=== PATIENT | male | born 1935 | race Caucasian/White ===

== ENCOUNTER 2022-03-13 22:05 | Inpatient (IN) ==
[2022-03-13 23:03] LABS: Basophils # (auto) 0.08 K/uL (0-0.2); Basophils % (auto) 0.7 %; Eosinophils # (auto) 0.19 K/uL (0-0.50); Eosinophils % (auto) 1.6 %; Hematocrit (blood only) 41.8 % (40.1-51.0); Hemoglobin 14.2 g/dl (14.0-18.0); Immature Granulocytes # (auto) 0.03 K/uL (0.00-0.02); Immature Granulocytes % (auto) 0.3 %; Lymphocytes # (auto) 1.92 K/uL (1.2-3.4); Lymphocytes % (auto) 16.2 %; Mean Corpuscular Hemoglobin 30.5 pg (25.0-34.0); Mean Corpuscular Volume 89.9 fL (80.0-100.0); Mean Platelet Volume 12.2 fL (9.4-12.4); Monocytes # (auto) 1.22 K/uL (0.24-0.82); Monocytes % (auto) 10.3 %; Neutrophils # (auto) 8.43 K/uL (1.4-6.5); Neutrophils % (auto) 70.9 %; Platelet Count 204 K/uL (130-400); RDW Coefficient of Variation 13.4 % (11.5-14.5); RDW Standard Deviation 43.8 fL (36.4-46.3); Red Blood Count 4.65 M/uL (4.63-6.08); White Blood Count 11.87 K/ul (4.8-10.8)
[2022-03-13 23:06] LABS: Appearance Urine Clear (Clear); Bacteria Urine Automated Negative (Negative); Bilirubin Urine Negative (Negative); Blood Urine Negative (Negative); Color Urine Dark Yellow; Glucose Urine UA Negative (Negative); Ketones Urine Negative (Negative); Leukocyte Esterase Urine Trace (Negative); Nitrite Urine Negative (Negative); Protein Urine Trace (Negative); RBC Urine Automated 0-4 /hpf (0-4); Specific Gravity Urine 1.018 (1.000-1.030); Urobilinogen Urine Negative (Negative)
[2022-03-13] MEDS ORDERED: cefTRIAXone SODIUM 2,000 MG/70 ML BAG IV STA (23:08)
--- NOTE | 2022-03-13 23:15 | Emergency Department Note ---
Impression & Plan AMS (altered mental status), Hypoxia, Right lower lobe pneumonia, Flu-like symptoms ED Provider Note INFORMANT: EMS, daughter, and patient ED PROVIDER(S): Shon Linder MD CHIEF COMPLAINT: Altered mental status/hypoxia PLAN: Disposition: Admitted Condition: Good Outpatient prescription management: none Referral: None MEDICAL DECISION MAKING: Patient presented because of cold symptoms, hypoxia, and confusion. He has a history of dementia. The patient was doing better with supplemental nasal cannula oxygen. Chest x-ray was concerning for right lower lobe infiltrate. The patient does have a leukocytosis chemistry panel did reveal hypokalemia. Patient was treated with IV Rocephin and doxycycline. He was also given IV potassium. COVID and flu testing were negative. Bio fire testing pending. Further management in the hospital will be necessary. I gave my usual and cu stomary discussion regarding this issue with his daughter. She was in agreement. She noted supportive care, fluids, antibiotics were okay. She noted that the patient is a DNR and no ventilatory support. Consultation was made with Dr. Yon Dunn of the [facility] service. Patient was evaluated in the ER for further management. Triage Nursing notes reviewed and agree them. Vital Signs: reviewed and remarkable for hypoxia prehospital. Differential diagnosis: Infection, hypoglycemia, electrolyte abnormalities, overdose, toxicologic, cardiac sources, intracerebral event, neurologic, trauma, as well as other pathologies. Diagnostics interpreted by me: EC Lead ECG performed and revealed Normal sinus rhythm at 78, normal [place], QRS normal. Nonspecific inferolateral ST changes. No PACs or PVCs Cardiac Monitoring: none Imaging studies: Chest x-ray concern for right lower lobe infiltrate. HPI: The patient is a 86year old male who presents to the Emergency Room with family because of hypoxia. The patient has had cold symptoms over the last 2 days and his O2 saturations today had decreased. Daughter is present helps with the history. He has had cold symptoms for 2 days. The patient's son did have a mild cold earlier this week. He had increased confusion today. Patient has severe dementia and schizophrenia. History is limited secondary to his pre- existing disease and acute illness. The patient did deny any headache, chest pain, or abdominal pain. The patient has been given no medication for relieving factors. ROS: See above HPI for pertinent positives & negatives. Limited secondary to dementia and acute illness. PAST MEDICAL HISTORY:See Below , pneumonia PAST SURGICAL HISTORY:See Below, FAMILY HISTORY:See Below SOCIAL HISTORY:See Below, lives with family HOME MEDICATIONS:See Below ALLERGIES:See Below VITALS:See Below PHYSICAL EXAMINATION: GENERAL: Awake, alert, mildly ill-appearing, in no distress HENT: Normocephalic, atraumatic. Oropharynx unremarkable. EYES: Normal conjunctiva. Sclera non-icteric. NECK: Inspection normal. Non-tender. Supple. No nuchal rigidity. FROM. No masses. RESPIRATORY: Scattered rhonchi. No wheezes. Increased respiratory effort. CARDIAC: Normal rate. Normal rhythm. No murmurs. No rubs. Extremities warm and well perfused. Pulses equal. No JVD. GI: Soft, non-distended. No tenderness to palpation. No rebound or guarding. No masses. RECTAL: Deferred. MUSCULOSKELETAL: Atraumatic. Chest examination reveals no tenderness. The back is symmetrical on inspection without obvious abnormality. There is no CVA tenderness to palpation. No joint edema. LOWER EXTREMITIES: Calves are equal size bilaterally and non-tender. No edema. No discoloration. NEURO: Demented sensorium. Moving arms and legs. Not following commands well. Very hard of hearing. SKIN: No rash or jaundice noted. Shon Linder MD Past Med/Surg History Medical History (Updated 03/13/22 @ 23:15 by Shon Linder MD) Anxiety Arthritis BPH (benign prostatic hyperplasia) CAD (coronary artery disease) Colon cancer COPD (chronic obstructive pulmonary disease) Dementia Depression Hypertension Pneumonia Tobacco abuse Surgical History History of cardiac cath History of colon resection History of open heart surgery S/P CABG x 2 Social History Smoking Status: Unknown if ever smoked Cigarettes Per Day: 20; Second Hand Exposure: Yes; Preferred Language: [place] Communication Ability: Effective Visual Impairment: Partially Limited Hearing Ability: Hard of Hearing [place] [employer] [facility] Technician Required: No Beliefs That Will Affect Care: None marital status: / Current Living Situation: Family Current Living Situation Comment: Son lives w/patient in trailer home Feels Safe at Home: Yes Assistive Devices: Walker Allergies Allergies Allergy/AdvReac Type Severity Reaction Status Date / Time morphine AdvReac Agitated Unverified 06/27/21 19:13 Home Meds Home Medications Medication Instructions Recorded Confirmed amlodipine 5 mg tablet 5 mg PO QAM 02/24/18 06/27/21 clopidogrel 75 mg tablet (Plavix) 75 mg PO QAM 02/24/18 06/27/21 cyanocobalamin (vitamin B-12) 1,000 mcg PO QAM 02/24/18 06/27/21 1,000 mcg tablet (Vitamin B-12) aspirin 81 mg tablet,delayed 81 mg PO QAM 06/27/21 06/27/21 release donepezil 10 mg tablet 10 mg PO QAM 06/27/21 06/27/21 lisinopril 10 mg tablet 10 mg PO QAM 06/27/21 06/27/21 mirtazapine 15 mg tablet 7.5 mg PO HS 06/27/21 06/27/21 quetiapine 50 mg tablet 50 mg PO HS 06/27/21 06/27/21 venlafaxine 75 mg capsule,extended 75 mg PO QAM 06/27/21 06/27/21 release 24 hr Previous Rx's Medication Instructions Recorded cefdinir 300 mg capsule 300 mg PO BID #7 caps 07/01/21 ipratropium 0.5 mg-albuterol 3 mg 3 ml NEB Q4H PRN shortness of 07/01/21 (2.5 mg base)/3 mL nebulization breath or wheezing #90 mL soln prednisone 10 mg tablet 10 mg PO DAILY #26 tabs 07/01/21 Results & Data (ED) Vital Signs Vital Signs - 24 hr 03/13/22 22:21 03/13/22 22:21 03/13/22 22:21 Pulse Rate 76 68 Pulse Rate [Apical] Respiratory Rate 20 Respiratory Effort / Characteristics Respiratory Depth Blood Pressure 148/66 H Blood Pressure [Left Arm] Blood Pressure Mean 93 Blood Pressure Mean [Left Arm] Blood Pressure Position Sitting Pulse Oximetry 90 90 95 Oxygen Delivery Method Room Air Room Air Nasal Cannula Oxygen Flow Rate 0 2 Sepsis Recent Fever Within 48 Hours No Sepsis New/Unexplained Change in Mental Status N/A Sepsis Action Taken by Nursing No Action Required Oxygen Flow Rate - Titration 2 Pulse Oximetry Post Tiitration 95 03/13/22 23:51 Pulse Rate Pulse Rate [Apical] 59 L Respiratory Rate 16 Respiratory Effort / Characteristics Non-Labored Spontaneous Respiratory Depth Normal Blood Pressure Blood Pressure [Left Arm] 120/62 Blood Pressure Mean Blood Pressure Mean [Left Arm] 81 Blood Pressure Position Pulse Oximetry 93 Oxygen Delivery Method Room Air Oxygen Flow Rate Sepsis Recent Fever Within 48 Hours Sepsis New/Unexplained Change in Mental Status Sepsis Action Taken by Nursing Oxygen Flow Rate - Titration Pulse Oximetry Post Tiitration Laboratory Data Result diagrams: 03/13/22 22:30 03/13/22 22:30 Lab Results 03/13/22 03/13/22 03/13/22 Range/Units 22:25 22:25 22:30 WBC 11.87 H (4.8-10.8) K/ul RBC 4.65 (4.63-6.08) M/uL Hgb 14.2 (14.0-18.0) g/dl Hct 41.8 (40.1-51.0) % MCV 89.9 (80.0-100.0) fL MCH 30.5 (25.0-34.0) pg MCHC 34.0 (32.0-36.0) g/dL RDW Std Deviation 43.8 (36.4-46.3) fL RDW Coeff of Bennie 13.4 (11.5-14.5) % Plt Count 204 (130-400) K/uL MPV 12.2 (9.4-12.4) fL Immature Gran % (Auto) 0.3 % Neut % (Auto) 70.9 % Lymph % (Auto) 16.2 % [place] % (Auto) 10.3 % Eos % (Auto) 1.6 % Baso % (Auto) 0.7 % Neut # (Auto) 8.43 H (1.4-6.5) K/uL Lymph # (Auto) 1.92 (1.2-3.4) K/uL [place] # (Auto) 1.22 H (0.24-0.82) K/uL Eos # (Auto) 0.19 (0-0.50) K/uL Baso # (Auto) 0.08 (0-0.2) K/uL Immature Gran # (Auto) 0.03 H (0.00-0.02) K/uL Sodium (136-145) mmol/L Potassium (3.5-5.1) mmol/L Chloride (98-107) mmol/L Carbon Dioxide (21-32) mmol/L Anion Gap (3-11) BUN (6-23) mg/dl Creatinine (0.6-1.4) mg/dl Est Cr Clr Drug Dosing Est GFR ( Amer) ml/min Est GFR (Non-Af Amer) ml/min BUN/Creatinine Ratio (10-20) Glucose (70-99(Fasting)) mg/dl Lactate (0.4-2.0) mmol/L Calcium (8.5-10.1) mg/dl Total Bilirubin (0.2-1.0) mg/dl AST (13-39) U/L ALT (7-52) U/L Alkaline Phosphatase (34-104) U/L Troponin I High Sens (0-20) pg/ml Total Protein (6.0-8.3) gm/dl Albumin (3.4-5.0) gm/dl Globulin (2.5-4.0) gm/dl Albumin/Globulin Ratio (0.9-2) Lipase (11-82) U/L Urine Color Dark Yellow Urine Appearance Clear (Clear) Urine pH 5.0 (4.5-7.5) Ur Specific [place] 1.018 (1.000-1.030) Urine Protein Trace H (Negative) Urine Glucose (UA) Negative (Negative) Urine Ketones Negative (Negative) Urine Blood Negative (Negative) Urine Nitrite Negative (Negative) Urine Bilirubin Negative (Negative) Urine Urobilinogen Negative (Negative) Ur Leukocyte Esterase Trace H (Negative) Urine WBC (Auto) 1-5 (0-5) /hpf Urine RBC (Auto) 0-4 (0-4) /hpf U Hyaline Cast (Auto) 1-5 (0-5) /lpf U Epithel Cells (Auto) 10-20 H (0-5) /lpf Urine Bacteria (Auto) Negative (Negative) SARS-CoV-2 (PCR) NEGATIVE (Negative) Influenza Type A (PCR) Negative (Neg) Influenza Type B (PCR) Negative (Neg) RSV (RT-PCR) Negative (Neg) 03/13/22 03/13/22 Range/Units 22:30 22:43 WBC (4.8-10.8) K/ul RBC (4.63-6.08) M/uL Hgb (14.0-18.0) g/dl Hct (40.1-51.0) % MCV (80.0-100.0) fL MCH (25.0-34.0) pg MCHC (32.0-36.0) g/dL RDW Std Deviation (36.4-46.3) fL RDW Coeff of Bennie (11.5-14.5) % Plt Count (130-400) K/uL MPV (9.4-12.4) fL Immature Gran % (Auto) % Neut % (Auto) % Lymph % (Auto) % [place] % (Auto) % Eos % (Auto) % Baso % (Auto) % Neut # (Auto) (1.4-6.5) K/uL Lymph # (Auto) (1.2-3.4) K/uL [place] # (Auto) (0.24-0.82) K/uL Eos # (Auto) (0-0.50) K/uL Baso # (Auto) (0-0.2) K/uL Immature Gran # (Auto) (0.00-0.02) K/uL Sodium 138 (136-145) mmol/L Potassium 3.1 L (3.5-5.1) mmol/L Chloride 103 (98-107) mmol/L Carbon Dioxide 28 (21-32) mmol/L Anion Gap 7 (3-11) BUN 15 (6-23) mg/dl Creatinine 1.10 (0.6-1.4) mg/dl Est Cr Clr Drug Dosing Not Reportable Est GFR ( Amer) 69.6 ml/min Est GFR (Non-Af Amer) 60.0 ml/min BUN/Creatinine Ratio 13.6 (10-20) Glucose 102 H (70-99(Fasting)) mg/dl Lactate 1.5 (0.4-2.0) mmol/L Calcium 8.4 L (8.5-10.1) mg/dl Total Bilirubin 1.4 H (0.2-1.0) mg/dl AST 12 L (13-39) U/L ALT 11 (7-52) U/L Alkaline Phosphatase 65 (34-104) U/L Troponin I High Sens 10.3 (0-20) pg/ml Total Protein 6.4 (6.0-8.3) gm/dl Albumin 3.7 (3.4-5.0) gm/dl Globulin 2.7 (2.5-4.0) gm/dl Albumin/Globulin Ratio 1.4 (0.9-2) Lipase 28 (11-82) U/L Urine Color Urine Appearance (Clear) Urine pH (4.5-7.5) Ur Specific [place] (1.000-1.030) Urine Protein (Negative) Urine Glucose (UA) (Negative) Urine Ketones (Negative) Urine Blood (Negative) Urine Nitrite (Negative) Urine Bilirubin (Negative) Urine Urobilinogen (Negative) Ur Leukocyte Esterase (Negative) Urine WBC (Auto) (0-5) /hpf Urine RBC (Auto) (0-4) /hpf U Hyaline Cast (Auto) (0-5) /lpf U Epithel Cells (Auto) (0-5) /lpf Urine Bacteria (Auto) (Negative) SARS-CoV-2 (PCR) (Negative) Influenza Type A (PCR) (Neg) Influenza Type B (PCR) (Neg) RSV (RT-PCR) (Neg) Administered Medications Discontinued Medications Ceftriaxone Sodium (Rocephin) 2,000 mg in 70 mls @ 140 mls/hr IV NOW STA Stop: 03/13/22 23:37 Last Admin: 03/13/22 23:32 Dose: 140 mls/hr Documented By: AN Discharge Plan Visit Data Chief Complaint: Altered Mental Status Stated Complaint: ALTERED MENTAL STSTUS/RESPIRATORY/WEAK ED Provider: Shon Linder Discharge Problem: AMS (altered mental status), Hypoxia, Right lower lobe pneumonia, Flu-like symptoms Forms Stand Alone Forms: My [facility] Prescriptions Prescriptions: No Action cyanocobalamin (vitamin B-12) [Vitamin B-12] 1,000 mcg Tablet 1,000 mcg PO QAM clopidogrel [Plavix] 75 mg Tablet 75 mg PO QAM amlodipine 5 mg Tablet 5 mg PO QAM venlafaxine 75 mg capsule,extended release 24hr 75 mg PO QAM donepezil 10 mg tablet 10 mg PO QAM aspirin 81 mg Tablet,Delayed Release (Dr/Ec) 81 mg PO QAM lisinopril 10 mg tablet 10 mg PO QAM mirtazapine 15 mg tablet 7.5 mg PO HS quetiapine 50 mg tablet 50 mg PO HS prednisone 10 mg tablet 10 mg PO DAILY Qty: 26 0RF Rx Instructions: 4 tabs po daily x 2 days, 3 tabs po daily x 3 days, 2 tabs po daily x 3 days, 1 tab po daily x 3 days then stop cefdinir 300 mg capsule 300 mg PO BID Qty: 7 0RF Rx Instructions: next dose due on 07/01/21 before bed ipratropium-albuterol 0.5 mg-3 mg(2.5 mg base)/3 mL Solution For Nebulization 3 ml NEB Q4H PRN (Reason: shortness of breath or wheezing) Qty: 90 0RF Referrals Referrals: Teodoro Bojorquez [Primary Care Provider] -
[2022-03-13 23:26] LABS: Alanine Aminotransferase 11 U/L (7-52); Albumin Globulin Ratio 1.4 (0.9-2); Albumin Level 3.7 gm/dl (3.4-5.0); Alkaline Phosphatase 65 U/L (34-104); Anion Gap 7 (3-11); Aspartate Aminotransferase 12 U/L (13-39); BUN Creatinine Ratio 13.6 (10-20); Bilirubin,Total 1.4 mg/dl (0.2-1.0); Blood Urea Nitrogen 15 mg/dl (6-23); Calcium 8.4 mg/dl (8.5-10.1); Carbon Dioxide 28 mmol/L (21-32); Chloride 103 mmol/L (98-107); Est GFR (African American) 69.6 ml/min; Globulin 2.7 gm/dl (2.5-4.0); Glucose 102 mg/dl (70-99(Fasting)); Lipase 28 U/L (11-82); Potassium 3.1 mmol/L (3.5-5.1); Sodium 138 mmol/L (136-145); Total Protein 6.4 gm/dl (6.0-8.3)
[2022-03-13 23:28] LABS: Troponin I High Sensitivity 10.3 pg/ml (0-20)
[2022-03-13 23:46] LABS: Influenza A virus by PCR Negative (Neg); Influenza B virus by PCR Negative (Neg); RSV by PCR Negative (Neg); SARS CoV2 RNA(COVID-19) Ceph NEGATIVE (Negative)
[2022-03-13] MEDS ORDERED: DOXYCYCLINE HYCLATE 100 MG in DEXTROSE 5% 100 ML IV STA (23:48)
[2022-03-13] MEDS ORDERED: POTASSIUM CHLORIDE / WTR 10 MEQ/100 ML PLCT IV ONE (23:50)
--- NOTE | 2022-03-14 00:18 | History & Physical Report ---
Date of Service March 14, 2022 Assessment & Plan (1) Bacterial pneumonia: Plan: Right greater than left lower lobe bacterial pneumonia/enterovirus/rhinovirus/COPD exacerbation- Continue ceftriaxone 2 g IV daily and doxycycline 100 mg IV every 12 hours begun in the ED Duonebs every 4 hours while awake and every 2 hours when necessary. Methylprednisolone 40 mg IV every 8 hours (2) AMS (altered mental status): Plan: Acute encephalopathy on top of underlying dementia secondary to pulmonary process (3) Rhinovirus infection: (4) Right lower lobe pneumonia: (5) COPD (chronic obstructive pulmonary disease): (6) Dementia: Plan: Dementia/depression/anxiety- Continue donepezil, mirtazapine, quetiapine and venlafaxine (7) Depression: (8) Coronary artery disease: Plan: CAD/hypertension-continue lisinopril, amlodipine with hold parameters, and aspirin (9) Hypertension: (10) Depression: History of Present Illness Chief Complaint: The patient presents to the emergency department with worsening confusion, hypoxia, flulike symptoms with history of dementia. The patient is unable to contribute to HPI or review of systems due to underlying dementia and schizophrenia Primary Care Provider: Teodoro Bojorquez The patient is an 86-year-old male with a past medical history including COPD, dementia, schizophrenia in remission, depression, hyperlipidemia, hypertension, CAD, encephalopathy, status post CABG, colon cancer and depression. He is brought to the emergency department due to symptoms as above. Work-up in the emergency department included a chest x-ray showing right greater than left lower lobe infiltrates, hypoxia with pulse ox on room air in the 80s, and potassium of 3.1. The patient was given ceftriaxone 2 g IV x1, doxycycline 100 mg IV x1 and potassium chloride 10 mill equivalent K rider x1 by the ED. Patient's laboratory studies also did ultimately show rhinovirus and enterovirus positivity Allergies Allergy/AdvReac Type Severity Reaction Status Date / Time morphine AdvReac Agitated Unverified 06/27/21 19:13 Home Medications Medication Instructions Recorded Confirmed Type amlodipine 5 mg tablet 5 mg PO QAM 02/24/18 03/14/22 History clopidogrel 75 mg tablet (Plavix) 75 mg PO QAM 02/24/18 03/14/22 History cyanocobalamin (vitamin B-12) 1,000 mcg PO QAM 02/24/18 03/14/22 History 1,000 mcg tablet (Vitamin B-12) aspirin 81 mg tablet,delayed 81 mg PO QAM 06/27/21 03/14/22 History release donepezil 10 mg tablet 10 mg PO QAM 06/27/21 03/14/22 History lisinopril 10 mg tablet 10 mg PO QAM 06/27/21 03/14/22 History mirtazapine 15 mg tablet 7.5 mg PO HS 06/27/21 03/14/22 History quetiapine 50 mg tablet 50 mg PO BID 06/27/21 03/14/22 History venlafaxine 75 mg capsule,extended 75 mg PO QAM 06/27/21 03/14/22 History release 24 hr ipratropium 0.5 mg-albuterol 3 mg 3 ml NEB Q4H PRN shortness of 07/01/21 03/14/22 Rx (2.5 mg base)/3 mL nebulization breath or wheezing #90 mL soln Past Med/Surg History Medical History (Updated 03/14/22 @ 02:30 by Yon Dunn MD) Anxiety Arthritis BPH (benign prostatic hyperplasia) CAD (coronary artery disease) Colon cancer COPD (chronic obstructive pulmonary disease) Dementia Depression Hypertension Pneumonia Tobacco abuse Surgical History History of cardiac cath History of colon resection History of open heart surgery S/P CABG x 2 Social History Smoking Status: Unknown if ever smoked Cigarettes Per Day: 20; Second Hand Exposure: Yes; Preferred Language: Mohawk Communication Ability: Effective Visual Impairment: Partially Limited Hearing Ability: Hard of Hearing 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 HEENT--PERRL, EOMI, mucous membranes and oropharynx dry. Neck--supple. No JVD. No bruits. Thyroid normal, trachea midline, no adenopathy. Heart--normal S1 and S2. No murmurs, rubs or gallops. Lungs-few coarse breath sounds bilaterally. No respiratory distress, no accessory muscle use. Abdomen--normal bowel sounds and soft. Nontender. Nondistended Extremities--no cyanosis or clubbing. No edema. Dermatologic--normal skin turgor, normal color, no abnormal lymph nodes, no rash. Neurologic--cranial nerves II through XII grossly intact. Rheumatologic--normal range of motion. Psychiatric--cooperative noncommunicative Results & Data Results & Data ([facility]) Vital Signs (Past 12 Hours) Vital Signs Pulse Pulse Resp BP BP Pulse Ox O2 Del Method 03/13/22 23:51 59 L 16 120/62 93 Room Air 03/13/22 22:21 68 95 Nasal Cannula 03/13/22 22:21 90 Room Air 03/13/22 22:21 76 20 148/66 H 90 Room Air O2 Flow Rate 03/13/22 23:51 03/13/22 22:21 2 03/13/22 22:21 0 03/13/22 22:21 Laboratory Results Laboratory Results WBC 11.87 K/ul (4.8-10.8) H 03/13/22 22:30 RBC 4.65 M/uL (4.63-6.08) 03/13/22 22:30 Hgb 14.2 g/dl (14.0-18.0) 03/13/22 22:30 Hct 41.8 % (40.1-51.0) 03/13/22 22:30 MCV 89.9 fL (80.0-100.0) 03/13/22 22:30 MCH 30.5 pg (25.0-34.0) 03/13/22 22:30 MCHC 34.0 g/dL (32.0-36.0) 03/13/22 22:30 RDW Std Deviation 43.8 fL (36.4-46.3) 03/13/22 22:30 RDW Coeff of Bennie 13.4 % (11.5-14.5) 03/13/22 22:30 Plt Count 204 K/uL (130-400) 03/13/22 22:30 MPV 12.2 fL (9.4-12.4) 03/13/22 22:30 Immature Gran % (Auto) 0.3 % 03/13/22 22:30 Neut % (Auto) 70.9 % 03/13/22 22:30 Lymph % (Auto) 16.2 % 03/13/22 22:30 [place] % (Auto) 10.3 % 03/13/22 22:30 Eos % (Auto) 1.6 % 03/13/22 22:30 Baso % (Auto) 0.7 % 03/13/22:30 Neut # (Auto) 8.43 K/uL (1.4-6.5) H 03/13/22 22:30 Lymph # (Auto) 1.92 K/uL (1.2-3.4) 03/13/22 22: [place] # (Auto) 1.22 K/uL (0.24-0.82) H 03/13/22 22:30 Eos # (Auto) 0.19 K/uL (0-0.50) 03/13/22 22: Baso # (Auto) 0.08 K/uL (0-0.2) 03/13/22:30 Immature Gran # (Auto) 0.03 K/uL (0.00-0.02) H 03/13/22 22:30 Sodium 138 mmol/L (136-145) 03/13/22 22: Potassium 3.1 mmol/L (3.5-5.1) L 03/13/22 22:30 Chloride 103 mmol/L (98-107) 03/13/22 22:30 Carbon Dioxide 28 mmol/L (21-32) 03/13/22 22:30 Anion Gap 7 (3-11) 03/13/22 22:30 BUN 15 mg/dl (6-23) 03/13/22 22:30 Creatinine 1.10 mg/dl (0.6-1.4) 03/13/22: Est Cr Clr Drug Dosing Not Reportable 03/13/22 22: Est GFR ( Amer) 69.6 ml/min 03/13/22 22:30 Est GFR (Non-Af Amer) 60.0 ml/min 03/13/22 22:30 BUN/Creatinine Ratio 13.6 (10-20) 03/13/22 22:30 Glucose 102 mg/dl (70-99(Fasting)) H 03/13/22 22: Lactate 1.5 mmol/L (0.4-2.0) 03/13/22 22:43 Calcium 8.4 mg/dl (8.5-10.1) L 03/13/22 22: Total Bilirubin 1.4 mg/dl (0.2-1.0) H 03/13/22 22:30 AST 12 U/L (13-39) L 03/13/22 22: ALT 11 U/L (7-52) 03/13/22 22: Alkaline Phosphatase 65 U/L (34-104) 03/13/22: Troponin I High Sens 10.3 pg/ml (0-20) 03/13/22: Total Protein 6.4 gm/dl (6.0-8.3) 03/13/22 22: Albumin 3.7 gm/dl (3.4-5.0) 03/13/22: Globulin 2.7 gm/dl (2.5-4.0) 03/13/22 22: Albumin/Globulin Ratio 1.4 (0.9-2) 03/13/22: Lipase 28 U/L (11-82) 03/13/22: Urine Color Dark Yellow 03/13/22: Urine Appearance Clear (Clear) 03/13/22: Urine pH 5.0 (4.5-7.5) 03/13/22: Ur Specific [place] 1.018 (1.000-1.030) 03/13/22: Urine Protein Trace (Negative) H 03/13/22: Urine Glucose (UA) Negative (Negative) 03/13/22: Urine Ketones Negative (Negative) 03/13/22: Urine Blood Negative (Negative) 03/13/22 Urine Nitrite Negative (Negative) 03/13/22: Urine Bilirubin Negative (Negative) 03/13/22: Urine Urobilinogen Negative (Negative) 03/13/22 22: Ur Leukocyte Esterase Trace (Negative) H 03/13/22 22: Urine WBC (Auto) 1-5 /hpf (0-5) 03/13/22 22:25 Urine RBC (Auto) 0-4 /hpf (0-4) 03/13/22 22:25 U Hyaline Cast (Auto) 1-5 /lpf (0-5) 03/13/22 22:25 U Epithel Cells (Auto) 10-20 /lpf (0-5) H 03/13/22 22:25 Urine Bacteria (Auto) Negative (Negative) 03/13/22 22:25 Adenovirus (PCR) Not Detected (NotDetected) 03/13/22 22:25 B. pertussis DNA (PCR) Not Detected (NotDetected) 03/13/22 22:25 B.parapertussis DNA PCR Not Detected (NotDetected) 03/13/22 22:25 C. pneumoniae DNA (PCR) Not Detected (NotDetected) 03/13/22 22:25 Coronavirus OC43 (PCR) Not Detected (NotDetected) 03/13/22 22:25 Coronavirus HKU1 (PCR) Not Detected (NotDetected) 03/13/22 22:25 Coronavirus 229E (PCR) Not Detected (NotDetected) 03/13/22 22:25 SARS-CoV-2 (PCR) NEGATIVE (Negative) 03/13/22 22:25 SARS-CoV-2 (PCR) Not Detected (NotDetected) 03/13/22 22:25 Coronavirus NL63 (PCR) Not Detected (NotDetected) 03/13/22 22:25 Human Metapneumovir PCR Not Detected (NotDetected) 03/13/22 22:25 Influenza Type A (PCR) Negative (Neg) 03/13/22 22:25 Influenza Type A (PCR) Not Detected (NotDetected) 03/13/22 22:25 Influenza Type B (PCR) Negative (Neg) 03/13/22 22:25 Influenza Type B (PCR) Not Detected (NotDetected) 03/13/22 22:25 M. pneumoniae (PCR) Not Detected (NotDetected) 03/13/22 22:25 Parainfluenza 1 (PCR) Not Detected (NotDetected) 03/13/22 22:25 Parainfluenza 2 (PCR) Not Detected (NotDetected) 03/13/22 22:25 Parainfluenza 3 (PCR) Not Detected (NotDetected) 03/13/22 22:25 Parainfluenza 4 (PCR) Not Detected (NotDetected) 03/13/22 22:25 RSV (RT-PCR) Negative (Neg) 03/13/22 22:25 RSV (PCR) Not Detected (NotDetected) 03/13/22 22:25 Entero/Rhino (PCR) DETECTED (NotDetected) A* 03/13/22 22:25 Code Status & VTE Plan Code Status DNR/DNI VTE Prophylaxis Plan VTE Prophylaxis will be ordered: Yes (1) Dementia Dementia behavioral disturbance: with behavioral disturbance Dementia type: unspecified type Qualified Code(s): F03.91 - Unspecified dementia with behavioral disturbance
[2022-03-14 00:45] LABS: Adenovirus PCR Not Detected (NotDetected); Bordetella parapertussis PCR Not Detected (NotDetected); Bordetella pertussis PCR Not Detected (NotDetected); Chlamydia pneumoniae PCR Not Detected (NotDetected); Coronavirus 229E PCR Not Detected (NotDetected); Coronavirus CoV-2 (COVID19)PCR Not Detected (NotDetected); Coronavirus HKU1 PCR Not Detected (NotDetected); Coronavirus NL63 PCR Not Detected (NotDetected); Coronavirus OC43PCR Not Detected (NotDetected); Human Metapneumovirus PCR Not Detected (NotDetected); Influenza A PCR Not Detected (NotDetected); Influenza B PCR Not Detected (NotDetected); Mycoplasma pneumoniae PCR Not Detected (NotDetected); Parainfluenza Virus 1 PCR Not Detected (NotDetected); Parainfluenza Virus 2 PCR Not Detected (NotDetected); Parainfluenza Virus 3 PCR Not Detected (NotDetected); Parainfluenza Virus 4 PCR Not Detected (NotDetected); Respiratory Syncytial VirusPCR Not Detected (NotDetected)
[2022-03-14 00:55] LABS: Rhinovirus/Enterovirus PCR DETECTED (NotDetected)
--- NOTE | 2022-03-14 02:34 | Billing Data ---
Date of Service March 14, 2022 Coding Level of Care Code 56134 Initial Inpt Care Lvl 3
[2022-03-14] MEDS ORDERED: ACETAMINOPHEN 325 MG TAB PO PRN (03:00)
[2022-03-14] MEDS ORDERED: ONDANSETRON INJ 2 MG/ML 2 ML VIAL IV PRN (03:00)
[2022-03-14 05:55] LABS: Basophils # (auto) 0.06 K/uL (0-0.2); Basophils % (auto) 0.5 %; Eosinophils # (auto) 0.14 K/uL (0-0.50); Eosinophils % (auto) 1.2 %; Hematocrit (blood only) 43.1 % (40.1-51.0); Hemoglobin 14.4 g/dl (14.0-18.0); Immature Granulocytes # (auto) 0.04 K/uL (0.00-0.02); Immature Granulocytes % (auto) 0.3 %; Lymphocytes # (auto) 0.94 K/uL (1.2-3.4); Lymphocytes % (auto) 7.8 %; Mean Corpuscular Hemoglobin 30.3 pg (25.0-34.0); Mean Corpuscular Hgb Conc 33.4 g/dL (32.0-36.0); Mean Corpuscular Volume 90.5 fL (80.0-100.0); Monocytes # (auto) 0.36 K/uL (0.24-0.82); Neutrophils # (auto) 10.45 K/uL (1.4-6.5); Neutrophils % (auto) 87.2 %; Platelet Count 196 K/uL (130-400); RDW Coefficient of Variation 13.2 % (11.5-14.5); RDW Standard Deviation 43.8 fL (36.4-46.3); Red Blood Count 4.76 M/uL (4.63-6.08); White Blood Count 11.99 K/ul (4.8-10.8)
[2022-03-14 06:28] LABS: Albumin Level 3.6 gm/dl (3.4-5.0); Anion Gap 6 (3-11); BUN Creatinine Ratio 14.1 (10-20); Blood Urea Nitrogen 14 mg/dl (6-23); Calcium 8.1 mg/dl (8.5-10.1); Carbon Dioxide 28 mmol/L (21-32); Chloride 104 mmol/L (98-107); Est GFR (Non-African American) 68.2 ml/min; Glucose 123 mg/dl (70-99(Fasting)); Phosphorus 2.9 mg/dl (2.5-4.9); Potassium 3.6 mmol/L (3.5-5.1); Sodium 138 mmol/L (136-145)
[2022-03-14] MEDS: ALBUT/IPRATROP 3MG/0.5MG NEB 3 ML VIAL NEB SCH ×4 (07:15→19:42)
--- NOTE | 2022-03-14 08:22 | XRay Report ---
XR chest 1V portable HISTORY: Shortness of breath. COMPARISON: Chest 06/27/2021. FINDINGS: No pneumothorax. No pleural effusions. The heart remains borderline enlarged. There are pos tsternotomy changes. No evidence for pulmonary edema. There are patchy bibasilar airspace opacities, right greater than left. This has slightly progressed in the interval. IMPRESSION: Patchy bibasilar airspace opacities, right greater than left, which has progressed in the interval. T his may represent a developing pneumonia ACT 112: Negative or not required by law. Electronically signed by: Jose Martinez M.D. 03/14/2022 8:20 AM
[2022-03-14] MEDS: amLODIPine BESYLATE 5 MG TAB PO SCH (08:38)
[2022-03-14] MEDS: ASPIRIN 81 MG ECTAB PO SCH (08:38)
[2022-03-14] MEDS: CYANOCOBALAMIN (B-12) 500 MCG TABLET PO SCH (08:39)
[2022-03-14] MEDS: DONEPEZIL HCL 10 MG TAB PO SCH (08:39)
[2022-03-14] MEDS: CLOPIDOGREL BISULFATE 75 MG TAB PO SCH (08:39)
[2022-03-14] MEDS: VENLAFAXINE HCL XR 75 MG CAPXR PO SCH (08:40)
[2022-03-14] MEDS: QUEtiapine FUMARATE 25 MG TABLET PO SCH ×2 (08:40→19:55)
[2022-03-14] MEDS: lisinopril 10 MG TAB PO SCH (08:40)
[2022-03-14] MEDS: methylPREDNISolone 40 MG in SYRINGE 0 ML IV SCH ×2 (10:45→18:12)
[2022-03-14] MEDS: DOXYCYCLINE HYCLATE 100 MG in DEXTROSE 5% 100 ML IV SCH (12:15)
[2022-03-14] MEDS ORDERED: INFLUENZA VACCINE HIGH DOSE PF 65+ 0.7 ML SYR IM ONE (15:30)
[2022-03-14] MEDS ORDERED: PNEUMOCOCCAL POLYSACCHARIDES 25 MCG/0.5 ML VIAL/SYR IM ONE (15:30)
--- NOTE | 2022-03-14 18:52 | Communication Note ---
Date of Service: March 14, 2022 Patient seen and examined but admitted the same day therefore I will not be billing for this encounter. Unable to confirm history with patient due to his dementia. Bibasal crackles on exam. No wheezing. Continue ceftriaxone, doxycycline and solu-medrol.
[2022-03-14 19:07] LABS: Albumin Level 3.6 gm/dl (3.4-5.0); Bilirubin Direct 0.2 mg/dl (0-0.2); Total Protein 6.4 gm/dl (6.0-8.3)
[2022-03-14] MEDS: MIRTAZAPINE TAB 15 MG TAB PO SCH (19:55)
[2022-03-14] MEDS: cefTRIAXone SODIUM 2,000 MG in DEXTROSE 5% 50 ML IV SCH (23:32)
[2022-03-15] MEDS: DOXYCYCLINE HYCLATE 100 MG in DEXTROSE 5% 100 ML IV SCH ×2 (00:14→11:32)
[2022-03-15] MEDS: methylPREDNISolone 40 MG in SYRINGE 0 ML IV SCH ×3 (05:04→18:15)
[2022-03-15] MEDS: ALBUT/IPRATROP 3MG/0.5MG NEB 3 ML VIAL NEB SCH (07:13)
[2022-03-15 08:19] LABS: Basophils # (auto) 0.02 K/uL (0-0.2); Basophils % (auto) 0.1 %; Hematocrit (blood only) 45.9 % (40.1-51.0); Hemoglobin 15.4 g/dl (14.0-18.0); Immature Granulocytes # (auto) 0.12 K/uL (0.00-0.02); Immature Granulocytes % (auto) 0.7 %; Lymphocytes % (auto) 8.6 %; Mean Corpuscular Hemoglobin 30.5 pg (25.0-34.0); Mean Corpuscular Hgb Conc 33.6 g/dL (32.0-36.0); Mean Corpuscular Volume 90.9 fL (80.0-100.0); Mean Platelet Volume 12.2 fL (9.4-12.4); Monocytes # (auto) 0.47 K/uL (0.24-0.82); Monocytes % (auto) 2.7 %; Neutrophils # (auto) 15.32 K/uL (1.4-6.5); Neutrophils % (auto) 87.9 %; Platelet Count 242 K/uL (130-400); RDW Coefficient of Variation 13.2 % (11.5-14.5); RDW Standard Deviation 43.8 fL (36.4-46.3); Red Blood Count 5.05 M/uL (4.63-6.08); White Blood Count 17.43 K/ul (4.8-10.8)
[2022-03-15] MEDS: QUEtiapine FUMARATE 25 MG TABLET PO SCH ×2 (08:32→19:50)
[2022-03-15] MEDS: amLODIPine BESYLATE 5 MG TAB PO SCH (08:33)
[2022-03-15] MEDS: CLOPIDOGREL BISULFATE 75 MG TAB PO SCH (08:33)
[2022-03-15] MEDS: DONEPEZIL HCL 10 MG TAB PO SCH (08:33)
[2022-03-15] MEDS: ASPIRIN 81 MG ECTAB PO SCH (08:33)
[2022-03-15] MEDS: CYANOCOBALAMIN (B-12) 500 MCG TABLET PO SCH (08:34)
[2022-03-15] MEDS: VENLAFAXINE HCL XR 75 MG CAPXR PO SCH (08:34)
[2022-03-15] MEDS: lisinopril 10 MG TAB PO SCH (08:34)
[2022-03-15 08:44] LABS: Anion Gap 10 (3-11); BUN Creatinine Ratio 18.8 (10-20); Blood Urea Nitrogen 22 mg/dl (6-23); Calcium 9.1 mg/dl (8.5-10.1); Carbon Dioxide 27 mmol/L (21-32); Chloride 102 mmol/L (98-107); Est GFR (African American) 64.6 ml/min; Est GFR (Non-African American) 55.7 ml/min; Glucose 150 mg/dl (70-99(Fasting)); Phosphorus 3.1 mg/dl (2.5-4.9); Potassium 3.5 mmol/L (3.5-5.1); Sodium 139 mmol/L (136-145)
[2022-03-15] MEDS ORDERED: ALBUT/IPRATROP 3MG/0.5MG NEB 3 ML VIAL NEB PRN (09:13)
[2022-03-15] MEDS ORDERED: MICONAZOLE NITRATE POWDER 43 GM EXT PRN (10:03)
[2022-03-15] MEDS: MIRTAZAPINE TAB 15 MG TAB PO SCH (19:49)
[2022-03-15] MEDS: cefTRIAXone SODIUM 2,000 MG in DEXTROSE 5% 50 ML IV SCH (23:22)
--- NOTE | 2022-03-15 23:48 | Hospitalist Progress Note ---
Date of Service March 15, 2022 Assessment & Plan (1) COPD exacerbation: Plan: Methylprednisolone 40 mg IV every 8 hours Duonebs QID Duonebs every 4 hours while awake and every 2 hours when necessary. 2 step in AM. Required 2LPM O2 on discharge in June. (2) Rhinovirus infection: Plan: Suspect main cause of COPD exacerbation as above (3) Bacterial pneumonia: Plan: Procalcitonin normal but elevated neutrophils on admission and CXR concerning for baterial PNA Right greater than left lower lobe bacterial pneumonia Continue ceftriaxone 2 g IV daily and doxycycline 100 mg IV every 12 hours begun in the ED (4) AMS (altered mental status): Plan: Acute encephalopathy on top of underlying dementia secondary to pulmonary process (5) Right lower lobe pneumonia: (6) COPD (chronic obstructive pulmonary disease): (7) Dementia: Plan: Dementia/depression/anxiety- Continue donepezil, mirtazapine, quetiapine and venlafaxine (8) Depression: (9) Coronary artery disease: Plan: CAD/hypertension-continue lisinopril, amlodipine with hold parameters, and aspirin (10) Hypertension: Admission and Anticipated Discharge Date Admission Date: March 14, 2022 Subjective Patient just keeps asking to leave. Unable to tell me anything about how he feels - he just wants to go home. Discussed with daughter at bedside and reports dementia at baseline. Lives with his son. Stable living situation. Review of Systems Review of Systems: All systems reviewed & are unremarkable except as noted in Subjective Physical Exam Constitutional: WD/WN, vitals as above Respiratory: normal respiratory effort; no respiratory distress Auscultation: + diminished lung sounds (throughout) and + crackles (bibasal); no wheezes Cardiovascular: RRR, no murmur, no edema Gastrointestinal (Abdomen): normal bowel sounds, soft, nontender, no hepatosplenomegaly Skin: no rashes, warm and dry Psychiatric: Orientation: alert and oriented to person; + not oriented to place and + not oriented to time Results & Data Results & Data ([facility]) Vital Signs (Past 12 Hours) Vital Signs Temp Pulse Resp BP Pulse Ox O2 Del Method O2 Flow Rate 03/15/22 22:00 37.1 C 78 20 144/73 H 98 Nasal Cannula 4 03/15/22 20:10 Nasal Cannula 03/15/22 15:33 37.0 C 82 18 131/62 93 Nasal Cannula 2 PG Care Time/CCT Total # of Minutes Spent Total Time Spent with Patient: Total time spent is greater than 50% in coordination of care (as documented) at patient's floor/unit and/or counseling patient: Coding Level of Care Code 90987 Subseq Hosp Care Lvl 2 Diagnoses COPD exacerbation J44.1 Rhinovirus infection B34.8 Bacterial pneumonia J15.9 AMS (altered mental status) R41.82 Right lower lobe pneumonia J18.9 COPD (chronic obstructive pulmonary disease) J44.9 Dementia F03.91 Dementia behavioral disturbance: with behavioral disturbance Dementia type: unspecified type Depression F32.9 Coronary artery disease I25.10 Hypertension I10 (1) Dementia Dementia behavioral disturbance: with behavioral disturbance Dementia type: unspecified type Qualified Code(s): F03.91 - Unspecified dementia with behavioral disturbance
[2022-03-16] MEDS: DOXYCYCLINE HYCLATE 100 MG in DEXTROSE 5% 100 ML IV SCH ×2 (00:31→11:47)
[2022-03-16] MEDS: methylPREDNISolone 40 MG in SYRINGE 0 ML IV SCH (02:19)
[2022-03-16 07:28] LABS: Basophils # (auto) 0.03 K/uL (0-0.2); Basophils % (auto) 0.1 %; Hematocrit (blood only) 44.4 % (40.1-51.0); Immature Granulocytes # (auto) 0.27 K/uL (0.00-0.02); Immature Granulocytes % (auto) 1.2 %; Lymphocytes # (auto) 1.69 K/uL (1.2-3.4); Lymphocytes % (auto) 7.8 %; Mean Corpuscular Hemoglobin 30.4 pg (25.0-34.0); Mean Corpuscular Hgb Conc 33.8 g/dL (32.0-36.0); Mean Corpuscular Volume 90.1 fL (80.0-100.0); Mean Platelet Volume 12.2 fL (9.4-12.4); Monocytes # (auto) 0.59 K/uL (0.24-0.82); Monocytes % (auto) 2.7 %; Neutrophils % (auto) 88.2 %; Platelet Count 273 K/uL (130-400); RDW Coefficient of Variation 13.3 % (11.5-14.5); RDW Standard Deviation 43.8 fL (36.4-46.3); Red Blood Count 4.93 M/uL (4.63-6.08); White Blood Count 21.68 K/ul (4.8-10.8)
[2022-03-16 07:54] LABS: Albumin Level 3.7 gm/dl (3.4-5.0); Anion Gap 7 (3-11); BUN Creatinine Ratio 29.2 (10-20); Blood Urea Nitrogen 33 mg/dl (6-23); Carbon Dioxide 29 mmol/L (21-32); Chloride 102 mmol/L (98-107); Est GFR (African American) 67.4 ml/min; Est GFR (Non-African American) 58.1 ml/min; Glucose 138 mg/dl (70-99(Fasting)); Phosphorus 2.5 mg/dl (2.5-4.9); Potassium 4.2 mmol/L (3.5-5.1); Sodium 138 mmol/L (136-145)
[2022-03-16] MEDS: ASPIRIN 81 MG ECTAB PO SCH (08:22)
[2022-03-16] MEDS: QUEtiapine FUMARATE 25 MG TABLET PO SCH (08:22)
[2022-03-16] MEDS: CYANOCOBALAMIN (B-12) 500 MCG TABLET PO SCH (08:23)
[2022-03-16] MEDS: amLODIPine BESYLATE 5 MG TAB PO SCH (08:23)
[2022-03-16] MEDS: lisinopril 10 MG TAB PO SCH (08:23)
[2022-03-16] MEDS: CLOPIDOGREL BISULFATE 75 MG TAB PO SCH (08:24)
[2022-03-16] MEDS: DONEPEZIL HCL 10 MG TAB PO SCH (08:24)
[2022-03-16] MEDS: VENLAFAXINE HCL XR 75 MG CAPXR PO SCH (08:24)
[2022-03-16] MEDS ORDERED: predniSONE 20 MG TAB PO SCH (10:15)
--- NOTE | 2022-03-16 14:40 | Discharge Summary ---
Date of Service March 16, 2022 Admission HPI Per Admitting Provider The patient is an 86-year-old male with a past medical history including COPD, dementia, schizophrenia in remission, depression, hyperlipidemia, hypertension, CAD, encephalopathy, status post CABG, colon cancer and depression. He is brought to the emergency department due to symptoms as above. Work-up in the emergency department included a chest x-ray showing right greater than left lower lobe infiltrates, hypoxia with pulse ox on room air in the 80s, and potassium of 3.1. The patient was given ceftriaxone 2 g IV x1, doxycycline 100 mg IV x1 and potassium chloride 10 mill equivalent K rider x1 by the ED. Patient's laboratory studies also did ultimately show rhinovirus and enterovirus positivity Principal Diagnosis Rhino/enterovirus causing COPD exacerbation Possible bacterial pneumonia Discharge Exam Constitutional well developed; + not well nourished and no acute distress Respiratory normal respiratory effort; no respiratory distress Auscultation: + diminished lung sounds and + crackles (bibasal); no wheezes Discharge Data Allergies Allergy/AdvReac Type Severity Reaction Status Date / Time morphine AdvReac Agitated Unverified 06/27/21 19:13 Consultations 03/13/22 23:51 ED Decision to Admit Stat Hospital Course (1) COPD exacerbation: Dillon Noonan is an 86 year old male admitted to [facility] from March 14 - 2021 due to shortness of breath and confusion. You were diagnosed with rhino-enterovirus causing COPD exacerbation treated with nebulizers and intravenous steroids. Please continue on a further three days of prednisone as prescribed. Possible bacterial pneumonia diagnosed based on XR findings and neutrophil count on admission. Please finish 7 days total of antibiotics (5 further days as prescribed). (2) Rhinovirus infection: (3) Bacterial pneumonia: (4) AMS (altered mental status): (5) Right lower lobe pneumonia: (6) COPD (chronic obstructive pulmonary disease): (7) Dementia: (8) Depression: (9) Coronary artery disease: (10) Hypertension: Total Time Total Time Spent Total Time Spent (In Minutes): 40 Discharge Plan Discharge Items Patient Disposition: Home - Home Health Services Reason For Visit: PNEUMONIA, HYPOXIA Discharge Diagnosis: Rhino/enterovirus causing COPD exacerbation Possible bacterial pneumonia Activity: Resume your previous activity Non-emergency contact: Primary Care Provider Call non-emergency contact if: you have any medication questions and your symptoms worsen Follow-up/Referrals: Teodoro Bojorquez [Primary Care Provider] - (PLEASE CALL YOUR PRIMARY CARE PROVIDER TO SCHEDULE A DISCHARGE FOLLOW-UP APPOINTMENT WITHIN 7-10 DAYS) Diet: Heart Healthy Addtl Attending Provider Instructions: You were admitted to [facility] from March 14 - 2021 due to shortness of breath and confusion. You were diagnosed with rhino- enterovirus causing COPD exacerbation treated with nebulizers and intravenous steroids. Please continue on a further three days of prednisone as prescribed. Possible bacterial pneumonia diagnosed based on XR findings and neutrophil count on admission. Please finish 7 days total of antibiotics (5 further days as prescribed). Pending Studies at Discharge: No Stand-Alone Forms: My [facility], Smoking Cessation Medications and DC Order Prescriptions: New prednisone 20 mg tablet 20 mg PO DAILY 3 Days Qty: 3 0RF doxycycline hyclate 100 mg tablet 100 mg PO BID 5 Days Qty: 10 0RF amoxicillin-pot clavulanate 875-125 mg tablet 1 tab PO BID 5 Days Qty: 10 0RF Continued cyanocobalamin (vitamin B-12) [Vitamin B-12] 1,000 mcg Tablet 1,000 mcg PO QAM clopidogrel [Plavix] 75 mg Tablet 75 mg PO QAM amlodipine 5 mg Tablet 5 mg PO QAM venlafaxine 75 mg capsule,extended release 24hr 75 mg PO QAM donepezil 10 mg tablet 10 mg PO QAM aspirin 81 mg Tablet,Delayed Release (Dr/Ec) 81 mg PO QAM lisinopril 10 mg tablet 10 mg PO QAM mirtazapine 15 mg tablet 7.5 mg PO HS quetiapine 50 mg tablet 50 mg PO BID ipratropium-albuterol 0.5 mg-3 mg(2.5 mg base)/3 mL Solution For Nebulization 3 ml NEB Q4H PRN (Reason: shortness of breath or wheezing) Qty: 90 0RF Discharge Orders: Discharge Order (Routine); Ordered 03/16/22 Ordered By: Chris Diego Admission Data Admit Date/Time: 03/14/22 00:17 Attending Provider: Chris Diego Admit Provider: Yon Dunn Primary Care Provider: Teodoro Bojorquez Other Providers: Yon Dunn Coding Level of Care Code D/C DAY MANAGEMENT >30 MINS Diagnoses COPD exacerbation J44.1 Rhinovirus infection B34.8 Bacterial pneumonia J15.9 AMS (altered mental status) R41.82 Right lower lobe pneumonia J18.9 COPD (chronic obstructive pulmonary disease) J44.9 Dementia F03.91 Dementia behavioral disturbance: with behavioral disturbance Dementia type: unspecified type Depression F32.9 Coronary artery disease I25.10 Hypertension I10 Home Health Attestation I certify that this patient is under my care and that I, or a physicians data analysis assistant working with me, had a face to-face encounter that meets the home health [id number] encounter requirements with this patient. The encounter with the patient was in whole, or in part, for the following medical condition, which is the primary reason for home health care (list medical condition): I certify that, based on my findings, the following services are medically necessary home health services: My clinical findings support the need for the above services because: Home Safety Assessment Hydration / Nutrition Medication Compliance Safety Vital Signs Further, I certify that my clinical findings support that this patient is homebound (i.e. absences from home require considerable and taxing effort and are for medical reasons or druze services or infrequently or of short duration when for other reasons) because: Transportation Assistance/Unable to Leave Home Unassisted Certification for Home Health Services: Based on the above findings, I certify that this patient is confined to the home and needs intermittent alf care, physical therapy and/or speech therapy or continues to need occupational therapy. The patient is under my care, and I have initiated the establishment of the plan of care. This patient will be followed by a physician who will periodically review the plan of care.
== END 2022-03-16 15:35 | disposition home health service (06) | DRG 190 ==
LOC: ED 22:05 → EDINP 03-14 00:17 → SUATTDRO 03-14 00:17 → 2W 03-14 03:01
DX: R09.02 Hypoxemia; F03.90 Unspecified dementia, unspecified severity, without behavioral disturbance, psychotic disturbance, mood disturbance, and anxiety; J44.0 Chronic obstructive pulmonary disease with (acute) lower respiratory infection; I25.10 Atherosclerotic heart disease of native coronary artery without angina pectoris; E87.6 Hypokalemia; F32.A Depression, unspecified; I10 Essential (primary) hypertension; Z20.822 Contact with and (suspected) exposure to COVID-19; Z79.02 Long term (current) use of antithrombotics/antiplatelets; Z88.5 Allergy status to narcotic agent; Z79.82 Long term (current) use of aspirin; Z79.899 Other long term (current) drug therapy; J44.1 Chronic obstructive pulmonary disease with (acute) exacerbation; B34.8 Other viral infections of unspecified site; G93.49 Other encephalopathy; N40.0 Benign prostatic hyperplasia without lower urinary tract symptoms; F41.9 Anxiety disorder, unspecified; J15.9 Unspecified bacterial pneumonia; Z66 Do not resuscitate; Z95.1 Presence of aortocoronary bypass graft

== ENCOUNTER 2022-06-27 13:38 | Inpatient (IN) ==
--- NOTE | 2022-06-27 14:48 | Emergency Department Note ---
Impression & Plan RLL pneumonia, Hypoxia, Acute exacerbation of chronic obstructive pulmonary disease, Elevated troponin I level ED Provider Note Provider: Johnathon Perera MD DATE OF SERVICE: 06/27/2022 CHIEF COMPLAINT: Weak, fall HISTORY OF PRESENT ILLNESS: Patient is a 86-year-old gentleman history of COPD, hypertension, dementia, schizophrenia, CABG, colon cancer presenting here ambulance due to worsening last several days. Family states he lives with his son but over the last day or 2 has been increasingly weak and not eating quite as much. He states his mentation seems around normal and he is very hard of hearing. Reports that he did fall off the toilet early on Monday morning around 4 AM. Use of blood thinners is reported. Son did recently have a cold the patient's had a bit of a cough and some shortness of breath. They noted his oxygen levels were borderline at home as well. Patient evidently complaining of some pain in his hip at times. Today the patient complains a bit of a cough but denies any significant chest abdominal pain. Denies significant pain in the lower extremities. Does not sound as if the patient hit his head but again not the best historian and very hard to communicate even screaming given his hearing issues. They do report that has been using breathing treatments at home and was recommended of oxygen at 1 point but he does not do this and will not wear it so they got rid of the machine. Did have COVID last month. PAST MEDICAL HISTORY: As noted above MEDICATIONS: Reviewed home medications, does include Plavix SOCIAL HISTORY: Lives with son PHYSICAL EXAM: GENERAL: alert in no acute distress on stretcher very hard of hearing Head: normocephalic and atraumatic EYES: No injection, discharge or icterus. PERRL, EOMI. NECK: Trachea midline. Supple without significant midline tenderness with some slight tenderness to the left lateral neck trapezius ENT: Mucous membranes pink and moist. LUNGS: Airway patent. No retractions. Breath sounds clear with good air entry bilaterally. HEART: Regular rate and rhythm. No chest wall tenderness ABDOMEN: Soft and non-tender, without guarding or rebound. Pelvis stable. SKIN: Acyanotic, warm, dry, without rashes with a healing scab over the dorsum of the right hand without significant erythema. EXTREMITIES: Without swelling, tenderness or deformity with good range of motion of the hips. NEUROLOGICAL: Follows commands. Extremely hard of hearing. No aphasia. No facial droop or slurred speech. Normal strength and tone in the extremities. Sensation to gross touch normal. EK bpm sinus rhythm with PAC. No acute ST segment elevation noted with some lateral ST flattening. QTc 460. CONTINUOUS CARDIAC MONITORING: was ordered and showed a heart rate of 70s-80s bpm in normal sinus rhythm GCS 15. Patient's laboratory studies and imaging reviewed. Differential includes Reactive airway disease, pneumonia, pneumothorax, COPD, CHF, infections, cardiac ischemia, pulmonary embolism, musculoskeletal traumatic injury such as closed head injury, gastrointestinal, as well as other pathologie s. IMPRESSION/MEDICAL DECISION MAKING: Patient former smoker noted to be increased weakness and did have a fall the other day. Following simple commands very hard to communicate given his deafness. Does have some oxygen in the high 80s on room air here at rest. Reports some cough. X-ray obtained as well as COVID testing and upper respiratory testing. Given the fall CT of the head and cervical spine will be complained of the pain of the neck is off midline. Not having acute neurological focal deficits on exam or by report. Benign abdomen. Stable pelvis will obtain x-rays but doubt a significant fracture is unable to range his hips well. Bladder here without anemia but a slight leukocytosis 11.5. Slight hypokalemia 3.3 but no other severe electrolyte abnormalities with a borderline calcium of 8.5. Stable renal function creatinine 1.2. Does not appear significantly dehydrated. Troponin is recently does returned somewhat elevated at 38 today. Not having active chest pain but given his mild hypoxia question if he is suffering from some COPD exacerbation and this is causing some demand ischemia. Respiratory viral panel was completed. Chest x-ray questions a right lower lobe pneumonia. Antibiotics ordered. We will give a DuoNeb. Offered steroids but patient evidently has adverse reactions in the past according to daughter and family do not wish him to receive steroids at this time. Some sinusitis on the head CT but no evidence of significant trauma. No significant pelvic or hip fracture noted on x-ray of the pelvis. Will bring into the hospital with pneum onia and hypoxia although likely some component of COPD. Family questions if hospice may be appropriate for the patient which were further discussions while here. DIAGNOSIS: Right lower lobe pneumonia, weakness, acute COPD exacerbation, hypoxia, elevated troponin DISPOSITION: Hospitalist will evaluate Patient was agreeable with this plan. Past Med/Surg History Medical History (Updated 06/27/22 @ 18:48 by Johnathon Perera M.D.) Anxiety Arthritis BPH (benign prostatic hyperplasia) CAD (coronary artery disease) Colon cancer COPD (chronic obstructive pulmonary disease) Dementia Depression Hypertension Pneumonia Tobacco abuse Surgical History History of cardiac cath History of colon resection History of open heart surgery S/P CABG x 2 Social History Smoking Status: Former smoker Cigarettes Per Day: 20; Second Hand Exposure: Yes; Hx Alcohol Use: No Hx Substance Use: No Preferred Language: Lithuanian Communication Ability: Effective Communication Ability Comment: Patient is hard of hearing. Confused & disoriented Visual Impairment: Partially Limited Hearing Ability: Hard of Hearing Airway Traffic Controller Required: No Beliefs That Will Affect Care: None marital status: / Current Living Situation: Family Current Living Situation Comment: Son and daughter in law Feels Safe at Home: Yes Assistive Devices: Nebulizer and Walker Allergies Allergies Allergy/AdvReac Type Severity Reaction Status Date / Time morphine AdvReac Agitated Unverified 05/08/22 20:40 Home Meds Home Medications Medication Instructions Recorded Confirmed amlodipine 5 mg tablet 5 mg PO QAM 02/24/18 06/27/22 clopidogrel 75 mg tablet (Plavix) 75 mg PO QAM 02/24/18 06/27/22 cyanocobalamin (vitamin B-12) 1,000 mcg PO QAM 02/24/18 06/27/22 1,000 mcg tablet (Vitamin B-12) aspirin 81 mg tablet,delayed 81 mg PO QAM 06/27/21 06/27/22 release donepezil 10 mg tablet 10 mg PO QAM 06/27/21 06/27/22 lisinopril 10 mg tablet 10 mg PO QAM 06/27/21 06/27/22 mirtazapine 15 mg tablet 7.5 mg PO HS 06/27/21 06/27/22 quetiapine 50 mg tablet 50 mg PO BID 06/27/21 06/27/22 venlafaxine 75 mg capsule,extended 75 mg PO QAM 06/27/21 06/27/22 release 24 hr Previous Rx's Medication Instructions Recorded ipratropium 0.5 mg-albuterol 3 mg 3 ml NEB Q4H PRN shortness of 07/01/21 (2.5 mg base)/3 mL nebulization breath or wheezing #90 mL soln Results & Data (ED) Vital Signs Vital Signs - 24 hr 06/27/22 14:00 06/27/22 14:14 06/27/22 15:26 Temperature 37.0 C Temperature Source Oral Pulse Rate 72 77 Pulse Rate from SpO2 Sensor Pulse Rhythm Regular Pulse Strength Normal Respiratory Rate 20 Respiratory Effort / Characteristics Non-Labored Spontaneous Respiratory Depth Normal Respiratory Pattern Regular Blood Pressure 114/77 Blood Pressure Mean 89 Blood Pressure Position Lying Pulse Oximetry 95 94 Oxygen Delivery Method Nasal Cannula Nasal Cannula Oxygen Flow Rate 4 3 Sepsis Recent Fever Within 48 Hours No Sepsis New/Unexplained Change in Mental Status N/A Sepsis Action Taken by Nursing No Action Required 06/27/22 13:58 06/27/22 14:00 06/27/22 14:07 Temperature Temperature Source Pulse Rate 72 74 76 Pulse Rate from SpO2 Sensor 75 80 74 Pulse Rhythm Pulse Strength Respiratory Rate 40 H 24 21 Respiratory Effort / Characteristics Respiratory Depth Respiratory Pattern Blood Pressure Blood Pressure Mean Blood Pressure Position Pulse Oximetry 95 95 94 Oxygen Delivery Method Oxygen Flow Rate Sepsis Recent Fever Within 48 Hours Sepsis New/Unexplained Change in Mental Status Sepsis Action Taken by Nursing 06/27/22 14:07 06/27/22 18:06 Temperature Temperature Source Pulse Rate 82 Pulse Rate from SpO2 Sensor Pulse Rhythm Pulse Strength Respiratory Rate Respiratory Effort / Characteristics Respiratory Depth Respiratory Pattern Blood Pressure 114/77 Blood Pressure Mean 89 Blood Pressure Position Pulse Oximetry Oxygen Delivery Method Oxygen Flow Rate Sepsis Recent Fever Within 48 Hours Sepsis New/Unexplained Change in Mental Status Sepsis Action Taken by Nursing Laboratory Data 06/27/22 14:05 06/27/22 14:05 Lab Results 06/27/22 06/27/22 06/27/22 Range/Units 14:04 14:05 14:05 WBC 11.54 H (4.8-10.8) K/ul RBC 4.67 L (4.70-6.10) M/uL Hgb 14.0 (14.0-18.0) g/dl Hct 41.0 L (42.0-52.0) % MCV 87.8 (80.0-100.0) fL MCH 30.0 (25.0-34.0) pg MCHC 34.1 (32.0-36.0) g/dL RDW Std Deviation 44.8 (36.4-46.3) fL RDW Coeff of Bennie 14.0 (11.5-14.5) % Plt Count 238 (130-400) K/uL MPV 12.1 (9.4-12.4) fL Immature Gran % (Auto) 0.4 % Neut % (Auto) 69.7 % Lymph % (Auto) 15.3 % Sauk % (Auto) 14.0 % Eos % (Auto) 0.3 % Baso % (Auto) 0.3 % Neut # (Auto) 8.04 H (1.40-6.50) K/uL Lymph # (Auto) 1.76 (1.2-3.4) K/uL Sauk # (Auto) 1.61 H (0.11-0.59) K/uL Eos # (Auto) 0.04 (0-0.50) K/uL Baso # (Auto) 0.04 (0-0.2) K/uL Immature Gran # (Auto) 0.05 (0.01-0.20) K/uL PT 11.2 (9.0-12.0) Seconds INR 1.1 (0.9-1.1) Sodium (136-145) mmol/L Potassium (3.5-5.1) mmol/L Chloride (98-107) mmol/L Carbon Dioxide (21-32) mmol/L Anion Gap (3-11) BUN (6-23) mg/dl Creatinine (0.6-1.4) mg/dl Est Cr Clr Drug Dosing ml/min Est GFR ( Amer) ml/min Est GFR (Non-Af Amer) ml/min BUN/Creatinine Ratio (10-20) Glucose (70-99(Fasting)) mg/dl Calcium (8.6-10.3) mg/dl Magnesium (1.7-2.4) mg/dl Total Bilirubin (0.2-1.0) mg/dl AST (13-39) U/L ALT (7-52) U/L Alkaline Phosphatase (34-104) U/L Troponin I High Sens (0-20) pg/ml Total Protein (6.0-8.3) gm/dl Albumin (3.4-5.0) gm/dl Globulin (2.5-4.0) gm/dl Albumin/Globulin Ratio (0.9-2) Procalcitonin 21.41 H (0-0.5) ng/ml Adenovirus (PCR) (NotDetected) B. pertussis DNA (PCR) (NotDetected) B.parapertussis DNA PCR (NotDetected) C. pneumoniae DNA (PCR) (NotDetected) Coronavirus OC43 (PCR) (NotDetected) Coronavirus HKU1 (PCR) (NotDetected) Coronavirus 229E (PCR) (NotDetected) SARS-CoV-2 (PCR) (NotDetected) Coronavirus NL63 (PCR) (NotDetected) Human Metapneumovir PCR (NotDetected) Influenza Type A (PCR) (NotDetected) Influenza Type B (PCR) (NotDetected) M. pneumoniae (PCR) (NotDetected) Parainfluenza 1 (PCR) (NotDetected) Parainfluenza 2 (PCR) (NotDetected) Parainfluenza 3 (PCR) (NotDetected) Parainfluenza 4 (PCR) (NotDetected) RSV (PCR) (NotDetected) Entero/Rhino (PCR) (NotDetected) 06/27/22 06/27/22 Range/Units 14:05 15:14 WBC (4.8-10.8) K/ul RBC (4.70-6.10) M/uL Hgb (14.0-18.0) g/dl Hct (42.0-52.0) % MCV (80.0-100.0) fL MCH (25.0-34.0) pg MCHC (32.0-36.0) g/dL RDW Std Deviation (36.4-46.3) fL RDW Coeff of Bennie (11.5-14.5) % Plt Count (130-400) K/uL MPV (9.4-12.4) fL Immature Gran % (Auto) % Neut % (Auto) % Lymph % (Auto) % Sauk % (Auto) % Eos % (Auto) % Baso % (Auto) % Neut # (Auto) (1.40-6.50) K/uL Lymph # (Auto) (1.2-3.4) K/uL [place] # (Auto) (0.11-0.59) K/uL Eos # (Auto) (0-0.50) K/uL Baso # (Auto) (0-0.2) K/uL Immature Gran # (Auto) (0.01-0.20) K/uL PT (9.0-12.0) Seconds INR (0.9-1.1) Sodium 136 (136-145) mmol/L Potassium 3.3 L (3.5-5.1) mmol/L Chloride 100 (98-107) mmol/L Carbon Dioxide 29 (21-32) mmol/L Anion Gap 7 (3-11) BUN 22 (6-23) mg/dl Creatinine 1.26 (0.6-1.4) mg/dl Est Cr Clr Drug Dosing 38.4 ml/min Est GFR ( Amer) 59.0 ml/min Est GFR (Non-Af Amer) 50.9 ml/min BUN/Creatinine Ratio 17.5 (10-20) Glucose 118 H (70-99(Fasting)) mg/dl Calcium 8.5 L (8.6-10.3) mg/dl Magnesium 1.8 (1.7-2.4) mg/dl Total Bilirubin 0.9 (0.2-1.0) mg/dl AST 16 (13-39) U/L ALT 10 (7-52) U/L Alkaline Phosphatase 56 (34-104) U/L Troponin I High Sens 38.3 H (0-20) pg/ml Total Protein 6.4 (6.0-8.3) gm/dl Albumin 3.1 L (3.4-5.0) gm/dl Globulin 3.3 (2.5-4.0) gm/dl Albumin/Globulin Ratio 0.9 (0.9-2) Procalcitonin (0-0.5) ng/ml Adenovirus (PCR) Not Detected (NotDetected) B. pertussis DNA (PCR) Not Detected (NotDetected) B.parapertussis DNA PCR Not Detected (NotDetected) C. pneumoniae DNA (PCR) Not Detected (NotDetected) Coronavirus OC43 (PCR) Not Detected (NotDetected) Coronavirus HKU1 (PCR) Not Detected (NotDetected) Coronavirus 229E (PCR) Not Detected (NotDetected) SARS-CoV-2 (PCR) Not Detected (NotDetected) Coronavirus NL63 (PCR) Not Detected (NotDetected) Human Metapneumovir PCR DETECTED A* (NotDetected) Influenza Type A (PCR) Not Detected (NotDetected) Influenza Type B (PCR) Not Detected (NotDetected) M. pneumoniae (PCR) Not Detected (NotDetected) Parainfluenza 1 (PCR) Not Detected (NotDetected) Parainfluenza 2 (PCR) Not Detected (NotDetected) Parainfluenza 3 (PCR) Not Detected (NotDetected) Parainfluenza 4 (PCR) Not Detected (NotDetected) RSV (PCR) Not Detected (NotDetected) Entero/Rhino (PCR) Not Detected (NotDetected) Administered Medications Discontinued Medications Albuterol (Albut/Ipratrop 3mg/0.5mg Neb 3 Ml Vial) 12 ml NEB ONE ONE; Protocol Stop: 06/27/22 16:28 Last Admin: 06/27/22 17:02 Dose: 12 ml Documented By: HS Azithromycin (Azithromycin 250 Mg Tab) 500 mg PO NOW ONE Stop: 06/27/22 16:29 Last Admin: 06/27/22 17:01 Dose: 500 mg Documented By: HS Ceftriaxone Sodium (Rocephin) 2,000 mg in 70 mls @ 140 mls/hr IV NOW STA Stop: 06/27/22 16:57 Last Admin: 06/27/22 17:02 Dose: 140 mls/hr Documented By: HS Methylprednisolone (Methylprednisolone 125 Mg/2 Ml Vial) 60 mg IV NOW STA Stop: 06/27/22 16:28 Last Admin: 06/27/22 17:07 Dose: Not Given Documented By: HS Imaging Data Radiologist's Impression: Cervical Spine CT 06/27/22 14:32 CT cervical spine wo con CLINICAL HISTORY: 86 years-old Male with fall. Acute head and neck injury status post fall COMPARISON: Head CT of same day, CTA neck 05/08/2022 TECHNIQUE: Multiple axial CT images of the cervical spine were obtained without contrast. A dose lowering technique was utilized adhering to the principles of ALARA. FINDINGS: Ill-defined area of sclerosis is again noted involving C7 vertebral body. Mild to moderate mucosal thickening of the imaged paranasal sinuses. Mild chronic appearing T1 compression deformity. Multilevel changes include moderate to severe disc space narrowing C5-6 C6 with moderate disc space narrowing at C6- C7. Moderate to severe multilevel facet arthrosis. No acute cervical spine fracture or subluxation identified. Mild pleural parenchymal scarring of the left lung apex. Calcified plaque of the carotid bulbs. No prevertebral edema. IMPRESSION: 1. No acute cervical spine fracture or subluxation. 2. Ill-defined area of sclerosis involving the C7 vertebral body redemonstrated. Again, this finding should be correlated with oncology evaluation to exclude osteoblastic skeletal metastasis. ACT 112: Negative or not required by law. The above report was generated using voice recognition software. It may contain grammatical, syntax or spelling errors. Electronically signed by: Johnnie Caal M.D. 06/27/2022 4:[address] 06/27/22 14:[address] DOSE: 1616.73 mGy.cm HISTORY: fall TECHNIQUE: Multiaxial CT images of the head were performed without the use of intravenous contrast. Automated exposure control was utilized for this study. A dose lowering technique was utilized adhering to the principles of ALARA. Comparison: Head CT 05/08/2022. Findings: Mild to moderate mucosal thickening within the paranasal sinuses with a few small fluid levels most pronounced within the right maxillary sinus. 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 This has progressed. The mastoid air cells are clear. The calvarium and skull base are intact. There is no mass, hematoma, midline shift, acute infarct. White matter hypodensity is nonspecific but suggestive of microvascular ischemic change. The ventricles and sulci demonstrate mild age-related involutional changes. Impression: 1. No acute intracranial abnormality. 2. 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 This is new from the prior study. ACT 112: Negative or not required by law. Electronically signed by: Jose Martinez M.D. 06/27/2022 3:47 PM Pelvis X-Ray 06/27/22 14:32 XR pelvis 1-2V routine HISTORY: 86 years-old Male fall acute pelvic pain status post fall COMPARISON: None TECHNIQUE: AP view of the pelvis FINDINGS: Demineralized appearance of the bones. Mild osteoarthritis of the hips. Pelvic basin phleboliths with arterial calcifications. Surgical clips of the medial upper right thigh. IMPRESSION: No acute fracture or dislocation. ACT 112: Negative or not required by law. The above report was generated using voice recognition software. It may contain grammatical, syntax or spelling errors. Electronically signed by: Johnnie Caal M.D. 06/27/2022 3:08 PM Chest X-Ray 06/27/22 14:33 XR chest 1V portable HISTORY: fall, cough COMPARISON: Chest 05/08/2022. FINDINGS: No pneumothorax. The cardiac silhouette is normal in size. There are poststernotomy changes. A few punctate calcified granuloma within the left lung base. Otherwise, the left lung is clear. There is a new right lower lobe airspace opacity. No pleural effusions. IMPRESSION: A new right lower lobe airspace opacity. This likely represents a pneumonia. Recommend follow-up to ensure resolution. ACT 112: Negative or not required by law. Electronically signed by: Jose Martinez M.D. 06/27/2022 3:08 PM Discharge Plan Visit Data Chief Complaint: Illness Stated Complaint: FEVER, COUGH, DEHYDRATION ED Provider: Johnathon Perera Discharge Problem: RLL pneumonia, Hypoxia, Acute exacerbation of chronic obstructive pulmonary dis ease, Elevated troponin I level Patient Disposition: Being Evaluated by Hospitalist Forms Stand Alone Forms: My [facility] Prescriptions Prescriptions: No Action cyanocobalamin (vitamin B-12) [Vitamin B-12] 1,000 mcg Tablet 1,000 mcg PO QAM clopidogrel [Plavix] 75 mg Tablet 75 mg PO QAM amlodipine 5 mg Tablet 5 mg PO QAM venlafaxine 75 mg capsule,extended release 24hr 75 mg PO QAM donepezil 10 mg tablet 10 mg PO QAM aspirin 81 mg Tablet,Delayed Release (Dr/Ec) 81 mg PO QAM lisinopril 10 mg tablet 10 mg PO QAM mirtazapine 15 mg tablet 7.5 mg PO HS quetiapine 50 mg tablet 50 mg PO BID ipratropium-albuterol 0.5 mg-3 mg(2.5 mg base)/3 mL Solution For Nebulization 3 ml NEB Q4H PRN (Reason: shortness of breath or wheezing) Qty: 90 0RF Referrals Referrals: Teodoro Bojorquez [Primary Care Provider] -
[2022-06-27 15:02] LABS: Basophils # (auto) 0.04 K/uL (0-0.2); Basophils % (auto) 0.3 %; Eosinophils # (auto) 0.04 K/uL (0-0.50); Eosinophils % (auto) 0.3 %; Immature Granulocytes # (auto) 0.05 K/uL (0.01-0.20); Immature Granulocytes % (auto) 0.4 %; Lymphocytes # (auto) 1.76 K/uL (1.2-3.4); Lymphocytes % (auto) 15.3 %; Mean Corpuscular Hgb Conc 34.1 g/dL (32.0-36.0); Mean Corpuscular Volume 87.8 fL (80.0-100.0); Mean Platelet Volume 12.1 fL (9.4-12.4); Monocytes # (auto) 1.61 K/uL (0.11-0.59); Neutrophils # (auto) 8.04 K/uL (1.40-6.50); Neutrophils % (auto) 69.7 %; Platelet Count 238 K/uL (130-400); RDW Standard Deviation 44.8 fL (36.4-46.3); Red Blood Count 4.67 M/uL (4.70-6.10); White Blood Count 11.54 K/ul (4.8-10.8)
--- NOTE | 2022-06-27 15:09 | XRay Report ---
XR chest 1V portable HISTORY: fall, cough COMPARISON: Chest 05/08/2022. FINDINGS: No pneumothorax. The cardiac silhouette is normal in size. There are poststernotomy changes . A few punctate calcified granuloma within the left lung base. Otherwise, the left lung is clear. Th ere is a new right lower lobe airspace opacity. No pleural effusions. IMPRESSION: A new right lower lobe airspace opacity. This likely represents a pneumonia. Recommend follow-up to e nsure mandi. ACT 112: Negative or not required by law. Electronically signed by: Jose Martinez M.D. 06/27/2022 3:08 PM
--- NOTE | 2022-06-27 15:09 | XRay Report ---
XR pelvis 1-2V routine HISTORY: 86 years-old Male fall acute pelvic pain status post fall COMPARISON: None TECHNIQUE: AP view of the pelvis FINDINGS: Demineralized appearance of the bones. Mild osteoarthritis of the hips. Pelvic basin phleboliths with arterial calcifications. Surgical clips of the medial upper right thigh. IMPRESSION: No acute fracture or dislocation. ACT 112: Negative or not required by law. The above report was generated using voice recognition software. It may contain grammatical, syntax o r spelling errors. Electronically signed by: Johnnie Caal M.D. 06/27/2022 3:08 PM
[2022-06-27 15:15] LABS: Albumin Level 3.1 gm/dl (3.4-5.0); Bilirubin,Total 0.9 mg/dl (0.2-1.0); Calcium 8.5 mg/dl (8.6-10.3); Magnesium 1.8 mg/dl (1.7-2.4); Potassium 3.3 mmol/L (3.5-5.1)
[2022-06-27 15:18] LABS: INR 1.1 (0.9-1.1); Prothrombin Time 11.2 Seconds (9.0-12.0)
[2022-06-27 15:21] LABS: Albumin Globulin Ratio 0.9 (0.9-2); BUN Creatinine Ratio 17.5 (10-20); Creatinine Clr Calc Pharmacy 38.4 ml/min; Est GFR (Non-African American) 50.9 ml/min; Globulin 3.3 gm/dl (2.5-4.0); Total Protein 6.4 gm/dl (6.0-8.3)
--- NOTE | 2022-06-27 15:22 | Electrocardiogram Report ---
Test Reason : Blood Pressure : / mmHG Vent. Rate : 075 BPM Atrial Rate : 075 BPM P-R Int : 120 ms QRS Dur : 092 ms QT Int : 412 ms P-R-T Axes : 030 080 073 degrees QTc Int : 460 ms Poor data quality, interpretation may be adversely affected Sinus rhythm with Premature atrial complexes Nonspecific ST abnormality Abnormal ECG When compared with ECG of 08-MAY-2022 19:40, Premature atrial complexes are now Present Confirmed by Vega Albert ([id number]) on 06/27/2022 3:22:31 PM Referred By: REFERRED SELF Confirmed By:Vega Albert
[2022-06-27 15:26] LABS: Troponin I High Sensitivity 38.3 pg/ml (0-20)
--- NOTE | 2022-06-27 15:48 | CT Scan Report ---
HEAD CT NONCONTRAST CT DOSE: 1616.73 mGy.cm HISTORY: fall TECHNIQUE: Multiaxial CT images of the head were performed without the use of intravenous contrast. A utomated exposure control was utilized for this study. A dose lowering technique was utilized adheri ng to the principles of ALARA. Comparison: Head CT 05/08/2022. Findings: Mild to moderate mucosal thickening within the paranasal sinuses with a few small fluid lev els most pronounced within the right maxillary sinus. This is consistent with acute on chronic parana natividad sinusitis. This has progressed. The mastoid air cells are clear. The calvarium and skull base are intact. There is no mass, hematoma, midline shift, acute infarct. White matter hypodensity is nonspe cific but suggestive of microvascular ischemic change. The ventricles and sulci demonstrate mild age- related involutional changes. Impression: 1. No acute intracranial abnormality. 2. 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 This is new from the prior study. ACT 112: Negative or not required by law. Electronically signed by: Jose Martinez M.D. 06/27/2022 3:47 PM
[2022-06-27 16:24] LABS: Adenovirus PCR Not Detected (NotDetected); Bordetella parapertussis PCR Not Detected (NotDetected); Bordetella pertussis PCR Not Detected (NotDetected); Chlamydia pneumoniae PCR Not Detected (NotDetected); Coronavirus 229E PCR Not Detected (NotDetected); Coronavirus CoV-2 (COVID19)PCR Not Detected (NotDetected); Coronavirus HKU1 PCR Not Detected (NotDetected); Coronavirus NL63 PCR Not Detected (NotDetected); Coronavirus OC43PCR Not Detected (NotDetected); Influenza A PCR Not Detected (NotDetected); Influenza B PCR Not Detected (NotDetected); Mycoplasma pneumoniae PCR Not Detected (NotDetected); Parainfluenza Virus 1 PCR Not Detected (NotDetected); Parainfluenza Virus 2 PCR Not Detected (NotDetected); Parainfluenza Virus 3 PCR Not Detected (NotDetected); Parainfluenza Virus 4 PCR Not Detected (NotDetected); Respiratory Syncytial VirusPCR Not Detected (NotDetected); Rhinovirus/Enterovirus PCR Not Detected (NotDetected)
[2022-06-27] MEDS ORDERED: ALBUT/IPRATROP 3MG/0.5MG NEB 3 ML VIAL NEB ONE (16:27)
[2022-06-27] MEDS ORDERED: methylPREDNISolone 125 MG/2 ML VIAL IV STA (16:27)
[2022-06-27] MEDS ORDERED: cefTRIAXone SODIUM 2,000 MG/70 ML BAG IV STA (16:28)
[2022-06-27] MEDS ORDERED: AZITHROMYCIN 250 MG TAB PO ONE (16:28)
[2022-06-27 16:52] LABS: Human Metapneumovirus PCR DETECTED (NotDetected)
--- NOTE | 2022-06-27 16:59 | CT Scan Report ---
CT cervical spine wo con CLINICAL HISTORY: 86 years-old Male with fall. Acute head and neck injury status post fall COMPARISON: Head CT of same day, CTA neck 05/08/2022 TECHNIQUE: Multiple axial CT images of the cervical spine were obtained without contrast. A dose low ering technique was utilized adhering to the principles of ALARA. FINDINGS: Ill-defined area of sclerosis is again noted involving C7 vertebral body. Mild to moderate mucosal thickening of the imaged paranasal sinuses. Mild chronic appearing T1 compression deformity. Multilevel changes include moderate to severe disc space narrowing C5-6 C6 with moderate disc space n arrowing at C6-C7. Moderate to severe multilevel facet arthrosis. No acute cervical spine fracture or subluxation identified. Mild pleural parenchymal scarring of the left lung apex. Calcified plaque of the carotid bulbs. No pr evertebral edema. IMPRESSION: 1. No acute cervical spine fracture or subluxation. 2. Ill-defined area of sclerosis involving the C7 vertebral body redemonstrated. Again, this finding should be correlated with oncology evaluation to exclude osteoblastic skeletal metastasis. ACT 112: Negative or not required by law. The above report was generated using voice recognition software. It may contain grammatical, syntax o r spelling errors. Electronically signed by: Johnnie Caal M.D. 06/27/2022 4:58 PM
--- NOTE | 2022-06-27 18:02 | History & Physical Report ---
Date of Service June 27, 2022 Assessment & Plan (1) Acute respiratory failure with hypoxia: Plan: 2/2 bacterial pneumonia and metapneumovirus as below Mild CO2 retention previously on ABGs. Recommend aiming O2 sats 88-92% Baseline not on oxygen (passed 2 step on discharge in March admission) (2) Bacterial pneumonia: Plan: Double illness story Ceftriaxone/azithromycin given in the ER Will switch to Unasyn and azithromycin given high risk of aspiration pneumonia and possible sinusitis on CT Given significantly elevated procalcitonin will take blood cultures although notably these were taken after antibiotics given SLT consult (3) Human metapneumovirus (hMPV) pneumonia: Plan: Supportive treatment - suspect this predated his bacterial pneumonia as above (4) COPD exacerbation: Plan: Family concerned about systemic steroids given increased aggression last time he was on these - of note I did have him on Solu-medrol 40mg IV q8h last admission therefore suspect he can tolerate 40mg daily ok However no significant wheezing on exam therefore will treat with steroid nebulizers currently Budesonide BID Formoterol BID (5) Acute metabolic encephalopathy: Plan: Suspect due to infection as above Family request palliativ care consult given significant decline with repeated episodes of pneumonie and wondering about hospice care at home. Plan VTE prophylaxis - deferred given family going more hospice care route and SQ injection likely to increase delirium Diet - regular with aspiration precautions Disposition - admit to med/surg Admission and Anticipated Discharge Date Admission Date: June 27, 2022 History of Present Illness Chief Complaint: Altered mental state, shortness of breath, fever Primary Care Provider: Teodoro Bojorquez Dillon Noonan is an 86 year old male with COPD who presents to the ER via EMS with decreased oral intake, increased confusion, cough and shortness of breath. Unable to get any history from patient but his daughters are at bedside who provide history. They report 5-6 days of cough and fever and was initially improving on Monday but then started to decline again over the weekend. He fell Fell off the toilet on Monday. Getting increasingly weak with shortness of breath and worsening productive cough since. Eating ok and no choking or coughing after eating (he tends to eat only a few mouth falls at a time. Given ongoing decline mentally with his dementia and COPD his family are wondering about hospice care to get more support at home. He is not on oxygen at baseline. On last admission he became relatively aggressive and his daughters are concerned about systemic steroids causing that again. Allergies Allergy/AdvReac Type Severity Reaction Status Date / Time morphine AdvReac Agitated Unverified 05/08/22 20:40 Home Medications Medication Instructions Recorded Confirmed Type amlodipine 5 mg tablet 5 mg PO QAM 02/24/18 06/27/22 History clopidogrel 75 mg tablet (Plavix) 75 mg PO QAM 02/24/18 06/27/22 History cyanocobalamin (vitamin B-12) 1,000 mcg PO QAM 02/24/18 06/27/22 History 1,000 mcg tablet (Vitamin B-12) aspirin 81 mg tablet,delayed 81 mg PO QAM 06/27/21 06/27/22 History release donepezil 10 mg tablet 10 mg PO QAM 06/27/21 06/27/22 History lisinopril 10 mg tablet 10 mg PO QAM 06/27/21 06/27/22 History mirtazapine 15 mg tablet 7.5 mg PO HS 06/27/21 06/27/22 History quetiapine 50 mg tablet 50 mg PO BID 06/27/21 06/27/22 History venlafaxine 75 mg capsule,extended 75 mg PO QAM 06/27/21 06/27/22 History release 24 hr ipratropium 0.5 mg-albuterol 3 mg 3 ml NEB Q4H PRN shortness of 07/01/21 06/27/22 Rx (2.5 mg base)/3 mL nebulization breath or wheezing #90 mL soln Past Med/Surg History Medical History (Updated 06/28/22 @ 07:08 by Chris Diego MD) Anxiety Arthritis BPH (benign prostatic hyperplasia) CAD (coronary artery disease) Colon cancer COPD (chronic obstructive pulmonary disease) Dementia Depression Hypertension Pneumonia Tobacco abuse Surgical History History of cardiac cath History of colon resection History of open heart surgery S/P CABG x 2 Social History Smoking Status: Unknown if ever smoked Cigarettes Per Day: unable to answer; Second Hand Exposure: Yes; Preferred Language: Tajik Communication Ability: Impaired Communication Ability Comment: Patient is hard of hearing. Confused & disoriented Visual Impairment: Partially Limited Hearing Ability: Hard of Hearing Lining Sewer Required: No Beliefs That Will Affect Care: None marital status: / Current Living Situation: Family Current Living Situation Comment: Son and daughter in law Feels Safe at Home: Yes Assistive Devices: Nebulizer and Walker Assistive Devices Comment: unable to answer Review of Systems Review of Systems: Unobtainable due to cognitive status Physical Exam Constitutional: well developed; + not well nourished and no acute distress ENMT: external ear and nose normal, oropharynx normal Mouth: oral mucous membranes not dry Respiratory: + labored breathing, + uses accessory muscles, + cough and + prolonged expiratory phase Auscultation: + rhonchi; breath sounds present, no diminished lung sounds and no wheezes Cardiovascular: RRR, no murmur, no edema Gastrointestinal (Abdomen): normal bowel sounds, soft, nontender, no hepatosplenomegaly Skin: no rashes, warm and dry Neurologic: moves all extremities, awake and + confused Psychiatric: Orientation: alert; + not oriented x 3 Results & Data Results & Data Vital Signs (Past 12 Hours) Vital Signs Temp Pulse Resp BP Pulse Ox O2 Del Method O2 Flow Rate 06/27/22 14:07 114/77 06/27/22 14:07 76 21 94 06/27/22 14:00 74 24 95 06/27/22 13:58 72 40 H 95 06/27/22 15:26 94 Nasal Cannula 3 06/27/22 14:14 37.0 C 77 20 114/77 95 Nasal Cannula 4 06/27/22 14:00 72 Laboratory Results Abnormal lab results 06/27/22 06/27/22 06/27/22 Range/Units 14:04 14:05 14:05 WBC 11.54 H (4.8-10.8) K/ul RBC 4.67 L (4.70-6.10) M/uL Hct 41.0 L (42.0-52.0) % Neut # (Auto) 8.04 H (1.40-6.50) K/uL [place] # (Auto) 1.61 H (0.11-0.59) K/uL Potassium 3.3 L (3.5-5.1) mmol/L Glucose 118 H (70-99(Fasting)) mg/dl Calcium 8.5 L (8.6-10.3) mg/dl Troponin I High Sens 38.3 H (0-20) pg/ml Albumin 3.1 L (3.4-5.0) gm/dl Procalcitonin 21.41 H (0-0.5) ng/ml Human Metapneumovir PCR (NotDetected) 06/27/22 Range/Units 15:14 WBC (4.8-10.8) K/ul RBC (4.70-6.10) M/uL Hct (42.0-52.0) % Neut # (Auto) (1.40-6.50) K/uL [place] # (Auto) (0.11-0.59) K/uL Potassium (3.5-5.1) mmol/L Glucose (70-99(Fasting)) mg/dl Calcium (8.6-10.3) mg/dl Troponin I High Sens (0-20) pg/ml Albumin (3.4-5.0) gm/dl Procalcitonin (0-0.5) ng/ml Human Metapneumovir PCR DETECTED A* (NotDetected) Diagnostic Findings XR chest 1V portable HISTORY: fall, cough COMPARISON: Chest 05/08/2022. FINDINGS: No pneumothorax. The cardiac silhouette is normal in size. There are poststernotomy changes. A few punctate calcified granuloma within the left lung base. Otherwise, the left lung is clear. There is a new right lower lobe airspace opacity. No pleural effusions. IMPRESSION: A new right lower lobe airspace opacity. This likely represents a pneumonia. Recommend follow-up to ensure resolution. Medications Administered ER Medications Given: Duoneb 12ml Solu-Medrol 60mg IV (refused by patient family) Ceftriaxone 2g IV Azithromycin 500mg PO ECG Rate (beats per minute): 75 Rhythm: normal sinus Findings: + PAC Comparison ECG Date: from (May 08, 2022) Change: the following changes noted (PACs now present) Code Status & VTE Plan Code Status DNR/DNI VTE Prophylaxis Plan VTE Prophylaxis will be ordered: No PG Care Time/CCT Total # of Minutes Spent Total Time Spent with Patient: Total time spent is greater than 50% in coordination of care (as documented) at patient's floor/unit and/or counseling patient: Coding Level of Care Code 86155 INT INP/OBS CARE MIN Diagnoses Acute respiratory failure with hypoxia J96.01 Bacterial pneumonia J15.9 Human metapneumovirus (hMPV) pneumonia J12.3 COPD exacerbation J44.1 Acute metabolic encephalopathy G93.41
[2022-06-27] MEDS ORDERED: ONDANSETRON INJ 2 MG/ML 2 ML VIAL IV PRN (21:04)
[2022-06-27] MEDS ORDERED: ACETAMINOPHEN 325 MG TAB PO PRN (21:04)
[2022-06-27] MEDS: BUDESONIDE 0.5 MG/2 ML VIAL (PULMICORT) NEB SCH (21:39)
[2022-06-27] MEDS: ALBUT/IPRATROP 3MG/0.5MG NEB 3 ML VIAL NEB SCH (21:40)
[2022-06-27] MEDS: FORMOTEROL 20 MCG/2 ML VIAL NEB SCH (21:40)
[2022-06-27] MEDS: QUEtiapine FUMARATE 25 MG TABLET PO SCH (22:15)
[2022-06-27] MEDS: MIRTAZAPINE TAB 15 MG TAB PO SCH (22:15)
[2022-06-27] MEDS: AMPICILLIN/SULBACTAM SOD 3,000 MG in 0.9 % SODIUM CHLORIDE 100 ML IV SCH (22:16)
[2022-06-28] MEDS: AMPICILLIN/SULBACTAM SOD 3,000 MG in 0.9 % SODIUM CHLORIDE 100 ML IV SCH ×4 (04:23→21:12)
[2022-06-28] MEDS: BUDESONIDE 0.5 MG/2 ML VIAL (PULMICORT) NEB SCH ×2 (07:31→20:01)
[2022-06-28] MEDS: FORMOTEROL 20 MCG/2 ML VIAL NEB SCH ×2 (07:31→20:01)
[2022-06-28] MEDS: ALBUT/IPRATROP 3MG/0.5MG NEB 3 ML VIAL NEB SCH ×4 (07:31→20:01)
[2022-06-28 08:15] LABS: Basophils # (auto) 0.03 K/uL (0-0.2); Basophils % (auto) 0.3 %; Eosinophils % (auto) 0.9 %; Hematocrit (blood only) 38.2 % (42.0-52.0); Hemoglobin 12.6 g/dl (14.0-18.0); Immature Granulocytes # (auto) 0.06 K/uL (0.01-0.20); Immature Granulocytes % (auto) 0.6 %; Lymphocytes # (auto) 1.57 K/uL (1.2-3.4); Lymphocytes % (auto) 14.5 %; Mean Corpuscular Hemoglobin 29.2 pg (25.0-34.0); Mean Corpuscular Volume 88.6 fL (80.0-100.0); Mean Platelet Volume 11.4 fL (9.4-12.4); Monocytes # (auto) 1.58 K/uL (0.11-0.59); Monocytes % (auto) 14.6 %; Neutrophils # (auto) 7.46 K/uL (1.40-6.50); Neutrophils % (auto) 69.1 %; Platelet Count 241 K/uL (130-400); RDW Coefficient of Variation 13.7 % (11.5-14.5); Red Blood Count 4.31 M/uL (4.70-6.10)
[2022-06-28 08:43] LABS: Est GFR (African American) 67.4 ml/min; Est GFR (Non-African American) 58.1 ml/min; Potassium 3.2 mmol/L (3.5-5.1)
[2022-06-28 08:44] LABS: BUN Creatinine Ratio 16.8 (10-20); Calcium 8.1 mg/dl (8.6-10.3); Creatinine Clr Calc Pharmacy 44.6 ml/min
[2022-06-28] MEDS: DONEPEZIL HCL 10 MG TAB PO SCH ×2 (10:00→10:18)
[2022-06-28] MEDS: lisinopril 10 MG TAB PO SCH ×2 (10:00→10:18)
[2022-06-28] MEDS: ASPIRIN 81 MG ECTAB PO SCH ×2 (10:00→10:19)
[2022-06-28] MEDS: CLOPIDOGREL BISULFATE 75 MG TAB PO SCH ×2 (10:00→10:19)
[2022-06-28] MEDS: VENLAFAXINE HCL XR 75 MG CAPXR PO SCH ×2 (10:00→10:18)
[2022-06-28] MEDS: AZITHROMYCIN 250 MG TAB PO SCH ×2 (10:00→10:19)
[2022-06-28] MEDS: QUEtiapine FUMARATE 25 MG TABLET PO SCH ×3 (10:00→21:12)
[2022-06-28] MEDS: amLODIPine BESYLATE 5 MG TAB PO SCH ×2 (10:00→10:19)
--- NOTE | 2022-06-28 10:00 | Palliative Care Consultation ---
Date of Consultation June 28, 2022 Assessment & Plan (1) Palliative care by specialist: Met with pt/family. Provided overview of Palliative Medicine, a subspecialty that provides specialized medical care for people living with a serious illness by offering a focus on quality of life. Palliative Medicine is often conflated with hospice: I advised patient/family that Palliative and hospice can be partners but we are not the same. It is important to understand the difference so that we may be informed, and not afraid. Palliative Medicine works to improve QOL through reduction of symptom burden/more control over their illness, for both the patient and family. Palliative medicine clinicians are board certified, specially-trained and another member of the patient's medical care team. We often provide an extra layer of support because our care is based on the needs of the patient, not the prognosis; as such, it's appropriate at any age/advancing stage of a serious illness and can be provided along with curative treatment. Palliative Medicine clinicians are also trained in advanced communication methodologies, to facilitate complex discussions about advanced illness planning, which are needed to help assure that the treatment choices match the patient's goals, aka delivering Goal Concordant care. Finally, we discussed that hospice is a visiting nurse service that focuses on care delivered at the very end of life for patients with terminal illness, with life expectancy less than 6 month. (2) Discussion about advance care planning held with family member: Patient is not decisional due to advanced dementia, resp failure, metab enceph. ACP family meeting held face to face with daughter/HCP, Va Gonzalez in patient room for 30 minutes We reviewed that all chronic/progressive disease has a declining trajectory over time where facets of patient self-identity and independence are lost. Every acute event leads to a further decline, resulting- many times, in a new baseline. Advised that the greatest priority is to determine what matters most to pt, then family and to develop a plan of care that is aligned with those priorities. See #3 for hospice discussion (3) Encounter for hospice care discussion: 20 min spent on ACP discussion about hospice: I have provided education about the hospice benefit. Hospice is an interdisciplinary program offered by nurses, nurses aides, social workers, chaplains and a medical safety director for patients with a terminal condition and a life expectancy of less than 6 months. The goal would be to improve the quality of life of the patient in their home setting (home, retirement, inpatient hospice setting) by providing symptoms management, psychosocial and spiritual support. However, they cannot offer 24 hours care and if the family is unable to provide that care, they will have to consider pers onal care with out of pocket cost vs. retirement placement. (4) Acute respiratory failure with hypoxia: (5) Dementia: Dementia facts Aggressive medical treatment for residents with advanced dementia is often inappropriate for medical reasons, has a low rate of success, and can have negative outcomes that hasten functional decline and . ([place] [employer] Ethics Committee and Clinical Practice and Models of Care Committee. J Am Geriatr Soc. 2014 Nov;62(8):1590-3 and Greyson SL, Maribell JM, Holley SC, Bert V. A national study of the location of for older persons with dementia. J Am Geriatr Soc 2005; 53(2):299-305.) Tube feeding in residents with advanced dementia does not increase survival. It does not prevent aspiration pneumonia, malnutrition or pressure ulcers. It does not reduce the risk of infections or improve functional status or comfort of the patient. (from: Trent CUEVAS, Luma T Percutaneous endoscopic gastrostomy does not prolong survival in patients with dementia. Arch Screen Writer Med 2003; 163(11):5977-0793 AND Pedro DE, Adis ISIS, Anthony J, Aleks-Marlee S, Abelino RS. High short-term mortality in hospitalized patients with advanced dementia - Lack of benefit of tube feeding. Arch Screen Writer Med 2001; 161(4):594- 599.) Simple strategies involving hands-on care by well-trained staff such as massage, oral hygiene, changes in diet, and hand-feeding -- can prevent infection and manage feeding problems without resort to tube-feeding. Tube feeding does not prevent aspiration pneumonia and might actually increase its incidence, and does not prevent the consequences of malnutrition Hand feeding can be provided until the beginning of the dying process when all physiological processes shut down, note that cognitively intact cancer patients indicate that dying residents do not feel hunger and thirst. Voluntary refusal of food and liquids is often initiated by hospice patients and does not result in discomfort I recommend hospice: Hospice is a valuable service for persons with advanced dementia, particularly in management of pain, continuous involvement of the primary physician, and avoidance of hospitalization. Social support provided to caregivers is also important given their high levels of depressive symptoms and anxiety. The goal of care for residents with advanced dementia is primarily maintenance of function and patient should not be transferred to an acute care setting because hospitalization results in decline of functional abilities that do not recover after discharge Dementia behavioral disturbance: with behavioral disturbance Dementia type: unspecified type Qualified Code(s): F03.91 - Unspecified dementia with behavioral disturbance (6) Acute exacerbation of chronic obstructive pulmonary disease: (7) Acute metabolic encephalopathy: Plan Home with hospice, likely 365 but Va needs to confirm with family. She shares that there is some conflict with a sister who has been "disgruntled" that Va was asked to be POA and HCP, ahs been threatening "I'm getting a kiln door repairer and getting POA control, you are not good for this." no acute sx mgt needs. I will follow more peripherally at this junction given that we were asked to see pt for GOC and possible hospice which has been reviewed/discussed/decided as noted above. Thank you for allowing us to participate in the ongoing care of this patient. Please don't hesitate to call or page with any additional concerns. Dr. Dionne Coronel DNP Director, Palliative Care History of Present Illness Reason for Consultation: "considering hospice" Attending Physician: Alicia Villanueva MD History of Present Illness 86yo male admitted 06/27/22 with acute on chronic exacerbation of COPD, +human metapneumovirus and +PNA. Has a hx of "aggression" on steroids but seemed to do ok with Solumedrol 40IV last admission so has been given same dose this admission. +acute enceph likely metabolic in nature PMH: COPD, hypertension, dyslipidemia, dementia, schizophrenia, CABG, colon cancer Prior admissions: 06/27/22 - present 05/08/22 ED dc fever/confusion +stroke alert--> neg imaging, NIH scale 0, improved with IV fuids 03/14 - 03/16/22 AECOPD, poss PNA 06/27 - 07/01/21 AECOPD, MARY, declining PS, worsening dementia Allergies Allergy/AdvReac Type Severity Reaction Status Date / Time morphine AdvReac Agitated Unverified 05/08/22 20:40 Home Medications Medication Instructions Recorded Confirmed Type amlodipine 5 mg tablet 5 mg PO QAM 02/24/18 06/27/22 History clopidogrel 75 mg tablet (Plavix) 75 mg PO QAM 02/24/18 06/27/22 History cyanocobalamin (vitamin B-12) 1,000 mcg PO QAM 02/24/18 06/27/22 History 1,000 mcg tablet (Vitamin B-12) aspirin 81 mg tablet,delayed 81 mg PO QAM 06/27/21 06/27/22 History release donepezil 10 mg tablet 10 mg PO QAM 06/27/21 06/27/22 History lisinopril 10 mg tablet 10 mg PO QAM 06/27/21 06/27/22 History mirtazapine 15 mg tablet 7.5 mg PO HS 06/27/21 06/27/22 History quetiapine 50 mg tablet 50 mg PO BID 06/27/21 06/27/22 History venlafaxine 75 mg capsule,extended 75 mg PO QAM 06/27/21 06/27/22 History release 24 hr ipratropium 0.5 mg-albuterol 3 mg 3 ml NEB Q4H PRN shortness of 07/01/21 06/27/22 Rx (2.5 mg base)/3 mL nebulization breath or wheezing #90 mL soln Patient History Medical History (Updated 06/28/22 @ 10:04 by Dionne Coronel DNP) Anxiety Arthritis BPH (benign prostatic hyperplasia) CAD (coronary artery disease) Colon cancer COPD (chronic obstructive pulmonary disease) Dementia Depression Discussion about advance care planning held with family member Encounter for hospice care discussion Hypertension Palliative care by specialist Pneumonia Tobacco abuse Surgical History History of cardiac cath History of colon resection History of open heart surgery S/P CABG x 2 Social History Smoking Status: Unknown if ever smoked Cigarettes Per Day: unable to answer; Second Hand Exposure: Yes; Preferred Language: Gibraltarian Communication Ability: Unable Communication Ability Comment: Patient is hard of hearing. Confused & disoriented Visual Impairment: Partially Limited Hearing Ability: Hard of Hearing Liquefaction And Regasification Helper Required: No Beliefs That Will Affect Care: None marital status: / Current Living Situation: Family Current Living Situation Comment: Son and daughter in law Feels Safe at Home: Yes Assistive Devices: Walker Assistive Devices Comment: unable to answer Review of Systems Review of Systems: Unobtainable due to cognitive status (adv dementia, acute on chronic resp failure with metab encephalopathy) Physical Exam Physical Exam: frail elderly male lying supine in bed, asleep/lethargic opens eyes to loud verbal but quickly drifts back bitemp wasting neck supple without stridor chest rhonchorous, diminished S1S2, there is no JVD abd distended, BS+, no grimacing with palpation lethargic and tired appearing pale skin, warm to touch'+venous insuff changes BLE confused at baseline Results & Data Vital Signs (Past 12 Hours) Vital Signs Temp Pulse Resp BP Pulse Ox O2 Del Method O2 Flow Rate 06/28/22 09:42 37.3 C 85 20 134/68 91 Nasal Cannula 3 06/28/22 07:31 95 H 18 95 Nasal Cannula 3 06/28/22 04:39 18 Laboratory Results data reviewed Diagnostic Findings data reviewed PG Care Time/CCT Total # of Minutes Spent Total Time Spent: 81 Total Time Spent with Patient: Total time spent is greater than 50% in coordination of care (as documented) at patient's floor/unit and/or counseling patient: Advanced Care Planning 79832 Advanced Care Planning 30 [place] [address] IN/OBS CONSULT LVL 5,80M Patient Type New History Comprehensive Exam Comprehensive Medical Decision Making Moderate Complexity Diagnoses Palliative care by specialist Z51.5 Discussion about advance care planning held with family member Z71.0 Encounter for hospice care discussion Z71.89 Acute respiratory failure with hypoxia J96.01 Dementia F03.91 Dementia behavioral disturbance: with behavioral disturbance Dementia type: unspecified type Acute exacerbation of chronic obstructive pulmonary disease J44.1 Acute metabolic encephalopathy G93.41 Additional Codes Advanced Care Planning - 76613 Advanced Care Planning 30 Min: 29828 Advanced Care Planning 30 Min ([id number])
[2022-06-28] MEDS: CYANOCOBALAMIN (B-12) 500 MCG TABLET PO SCH (10:19)
[2022-06-28] MEDS ORDERED: POTASSIUM CHLORIDE CRTAB 20 MEQ TABCR PO STA (11:53)
[2022-06-28 12:43] LABS: Troponin I High Sensitivity 23.6 pg/ml (0-20)
[2022-06-28 16:40] LABS: Appearance Urine Cloudy (Clear); Bacteria Urine Automated Negative (Negative); Bilirubin Urine Negative (Negative); Blood Urine Negative (Negative); Color Urine Dark Yellow; Glucose Urine UA Negative (Negative); Ketones Urine Trace (Negative); Leukocyte Esterase Urine Negative (Negative); Nitrite Urine Negative (Negative); Protein Urine 1+ (Negative); RBC Urine Automated 0-4 /hpf (0-4); Specific Gravity Urine 1.028 (1.000-1.030); Urobilinogen Urine Negative (Negative); pH Urine 5.5 (4.5-7.5)
--- NOTE | 2022-06-28 20:55 | Hospitalist Progress Note ---
Date of Service June 28, 2022 Assessment & Plan (1) Acute respiratory failure with hypoxia: Plan: 2/2 bacterial pneumonia and metapneumovirus Mild CO2 retention previously on ABGs. Recommend aiming O2 sats 88-92% Baseline not on oxygen (passed 2 step on discharge in March admission) On 4LNC now (2) Bacterial pneumonia: Plan: Secondary bacterial infection post viral infection CXR with RLL PNA Ceftriaxone/azithromycin given in the ER Continue Unasyn and azithromycin given high risk of aspiration pneumonia and possible sinusitis on CT Given significantly elevated procalcitonin- blood cultures drawn but these were taken after antibiotics given SLT consult follow CBC, Procal, BMP in AM (3) Human metapneumovirus (hMPV) pneumonia: Plan: Supportive treatment - suspect this predated his bacterial pneumonia as above (4) COPD exacerbation: Plan: Family concerned about systemic steroids given increased aggression last time he was on these - of note he was on Solu-medrol 40mg IV q8h last admission therefore suspect he can tolerate 40mg daily ok However no significant wheezing on exam therefore will treat with steroid nebulizers currently Budesonide BID Formoterol BID (5) Acute metabolic encephalopathy: Plan: Suspect due to infection as above Family request palliative care consult given significant decline with repeated episodes of pneumonia and wondering about hospice care at home. Plan is for possible dc to home with hospice but family needs to discuss with other family members (6) Hypokalemia: Plan: replace with 20 meq po KCl follow BMP (7) Hypertension: Plan: BPs controlled continue lisinopril, amlodipine (8) Depression: Plan: continue Remeron, Seroquel, Effexor donepezil for dementia (9) CAD (coronary artery disease): Plan: h/o CABG continue Plavix,no acute issues trended trop and mildly elevated, trended downward demand ischemia Plan VTE prophylaxis - deferred given family going more hospice care route and SQ injection likely to increase delirium Diet - regular with aspiration precautions Disposition - continued stay med/surg Admission and Anticipated Discharge Date Admission Date: June 27, 2022 Subjective Pt resting and I did not wake him. He and his family met with Palliative Med earlier today and discussed possibility of going home with hospice. Physical Exam Constitutional: WD/WN, vitals as above Respiratory: normal respiratory effort; no cough Auscultation: + rhonchi (right lower lung field); no crackles and no wheezes Cardiovascular: Rate/Rhythm: regular rate and regular rhythm Heart Sounds: no murmur Extremities: no edema Results & Data Results & Data Vital Signs (Past 12 Hours) Vital Signs Temp Pulse Resp BP Pulse Ox O2 Del Method O2 Flow Rate 06/28/22 20:01 82 18 94 Nasal Cannula 3 06/28/22 16:18 37.2 C 89 18 125/66 90 Nasal Cannula 3 06/28/22 15:37 80 18 93 Nasal Cannula 3 06/28/22 11:51 90 20 96 Nasal Cannula 3 06/28/22 09:42 37.3 C 85 20 134/68 91 Nasal Cannula 3 Laboratory Results CBC and BMP reviewed PG Care Time/CCT Total # of Minutes Spent Total Time Spent with Patient: Total time spent is greater than 50% in coordination of care (as documented) at patient's floor/unit and/or counseling patient: Coding Level of Care Code 67374 SUB INP/OBS CARE 2/35MIN Diagnoses Acute respiratory failure with hypoxia J96.01 Bacterial pneumonia J15.9 Human metapneumovirus (hMPV) pneumonia J12.3 COPD exacerbation J44.1 Acute metabolic encephalopathy G93.41 Hypokalemia E87.6 Hypertension I10 Depression F32.9 CAD (coronary artery disease) I25.10
[2022-06-28] MEDS: MIRTAZAPINE TAB 15 MG TAB PO SCH (21:12)
[2022-06-29] MEDS: AMPICILLIN/SULBACTAM SOD 3,000 MG in 0.9 % SODIUM CHLORIDE 100 ML IV SCH ×4 (04:20→21:57)
[2022-06-29] MEDS: BUDESONIDE 0.5 MG/2 ML VIAL (PULMICORT) NEB SCH ×2 (07:06→19:33)
[2022-06-29] MEDS: FORMOTEROL 20 MCG/2 ML VIAL NEB SCH ×2 (07:06→19:33)
[2022-06-29] MEDS: ALBUT/IPRATROP 3MG/0.5MG NEB 3 ML VIAL NEB SCH ×4 (07:06→19:33)
[2022-06-29 08:43] LABS: Basophils # (auto) 0.04 K/uL (0-0.2); Basophils % (auto) 0.4 %; Eosinophils # (auto) 0.12 K/uL (0-0.50); Eosinophils % (auto) 1.2 %; Hematocrit (blood only) 39.5 % (42.0-52.0); Immature Granulocytes # (auto) 0.07 K/uL (0.01-0.20); Immature Granulocytes % (auto) 0.7 %; Lymphocytes # (auto) 1.19 K/uL (1.2-3.4); Mean Corpuscular Hemoglobin 29.5 pg (25.0-34.0); Mean Corpuscular Hgb Conc 32.9 g/dL (32.0-36.0); Mean Corpuscular Volume 89.8 fL (80.0-100.0); Monocytes # (auto) 1.09 K/uL (0.11-0.59); Neutrophils # (auto) 7.38 K/uL (1.40-6.50); Neutrophils % (auto) 74.7 %; Platelet Count 278 K/uL (130-400); RDW Coefficient of Variation 13.9 % (11.5-14.5); RDW Standard Deviation 45.8 fL (36.4-46.3); White Blood Count 9.89 K/ul (4.8-10.8)
[2022-06-29] MEDS: ASPIRIN 81 MG ECTAB PO SCH (08:53)
[2022-06-29] MEDS: amLODIPine BESYLATE 5 MG TAB PO SCH (08:54)
[2022-06-29] MEDS: QUEtiapine FUMARATE 25 MG TABLET PO SCH ×2 (08:56→21:57)
[2022-06-29] MEDS: AZITHROMYCIN 250 MG TAB PO SCH (08:56)
[2022-06-29] MEDS: DONEPEZIL HCL 10 MG TAB PO SCH (08:58)
[2022-06-29] MEDS: VENLAFAXINE HCL XR 75 MG CAPXR PO SCH (08:59)
[2022-06-29] MEDS: CYANOCOBALAMIN (B-12) 500 MCG TABLET PO SCH (09:00)
[2022-06-29 09:56] LABS: BUN Creatinine Ratio 14.7 (10-20); Calcium 8.4 mg/dl (8.6-10.3); Creatinine Clr Calc Pharmacy 46.2 ml/min; Est GFR (African American) 70.4 ml/min; Est GFR (Non-African American) 60.7 ml/min; Potassium 3.9 mmol/L (3.5-5.1)
[2022-06-29] MEDS: lisinopril 10 MG TAB PO SCH (09:58)
[2022-06-29] MEDS: CLOPIDOGREL BISULFATE 75 MG TAB PO SCH (09:58)
--- NOTE | 2022-06-29 12:41 | Hospitalist Progress Note ---
Date of Service June 29, 2022 Assessment & Plan (1) Acute respiratory failure with hypoxia: Plan: 2/2 bacterial pneumonia and metapneumovirus Mild CO2 retention previously on ABGs. Recommend aiming O2 sats 88-92% Baseline not on oxygen (passed 2 step on discharge in March admission) Weaned down to 3LNC now, improving (2) Bacterial pneumonia: Plan: Secondary bacterial infection post viral infection CXR with RLL PNA Ceftriaxone/azithromycin given in the ER Procal down from 21 to 5, no fevers since 06/28, no leukocytosis Continue Unasyn and azithromycin given high risk of aspiration pneumonia and possible sinusitis on CT -follow blood cultures drawn but these were taken after antibiotics given-NGTD SLT consult (3) Human metapneumovirus (hMPV) pneumonia: Plan: Supportive treatment - suspect this predated his bacterial pneumonia as above (4) COPD exacerbation: Plan: Family concerned about systemic steroids given increased aggression last time he was on these - of note he was on Solu-medrol 40mg IV q8h last admission therefore suspect he can tolerate 40mg daily ok However no significant wheezing on exam therefore will treat with steroid nebulizers currently Budesonide BID Formoterol BID (5) Acute metabolic encephalopathy: Plan: Suspect due to infection as above Family request palliative care consult given significant decline with repeated episodes of pneumonia and wondering about hospice care at home. Plan is for possible dc to home with hospice but family needs to discuss with other family members (6) Hypokalemia: Plan: replaced and resolved (7) Hypertension: Plan: BPs controlled continue lisinopril, amlodipine (8) Depression: Plan: continue Remeron, Seroquel, Effexor donepezil for dementia (9) CAD (coronary artery disease): Plan: h/o CABG continue Plavix,no acute issues trended trop and mildly elevated, trended downward demand ischemia Plan VTE prophylaxis - deferred given family going more hospice care route and SQ injection likely to increase delirium Diet - regular with aspiration precautions Disposition - continued stay med/surg but improving Admission and Anticipated Discharge Date Admission Date: June 27, 2022 Subjective Pt had a BM and getting cleaned up when I saw him. Very pleasant but confused. Denies any problems Physical Exam Constitutional: WD/WN, vitals as above Eyes: + anicteric sclerae Respiratory: normal respiratory effort; no cough Auscultation: + rhonchi (right lower lung field); no crackles and no wheezes Cardiovascular: Rate/Rhythm: regular rate and regular rhythm Heart Sounds: no murmur Extremities: no edema Neurologic: + confused; no focal motor deficits Psychiatric: Orientation: alert and cooperative Results & Data Results & Data Vital Signs (Past 12 Hours) Vital Signs Temp Pulse Pulse Resp BP BP Pulse Ox 06/29/22 11:36 90 18 93 06/29/22 08:48 90 135/71 06/29/22 07:50 06/29/22 07:43 37.0 C 87 18 127/57 L 93 06/29/22 07:06 88 22 O2 Del Method O2 Flow Rate 06/29/22 11:36 Nasal Cannula 3 06/29/22 08:48 06/29/22 07:50 Nasal Cannula 3 06/29/22 07:43 Nasal Cannula 3 06/29/22 07:06 Room Air Laboratory Results CBC, BMP, Procal, magnesium, blood culture and urine culture reviewed PG Care Time/CCT Total # of Minutes Spent Total Time Spent with Patient: Total time spent is greater than 50% in coordination of care (as documented) at patient's floor/unit and/or counseling patient: Coding Level of Care Code 05741 SUB INP/OBS CARE 2/35MIN Diagnoses Acute respiratory failure with hypoxia J96.01 Bacterial pneumonia J15.9 Human metapneumovirus (hMPV) pneumonia J12.3 COPD exacerbation J44.1 Acute metabolic encephalopathy G93.41 Hypokalemia E87.6 Hypertension I10 Depression F32.9 CAD (coronary artery disease) I25.10
[2022-06-29] MEDS: MIRTAZAPINE TAB 15 MG TAB PO SCH (21:56)
[2022-06-30] MEDS: AMPICILLIN/SULBACTAM SOD 3,000 MG in 0.9 % SODIUM CHLORIDE 100 ML IV SCH ×2 (03:55→10:23)
[2022-06-30] MEDS: BUDESONIDE 0.5 MG/2 ML VIAL (PULMICORT) NEB SCH (07:05)
[2022-06-30] MEDS: FORMOTEROL 20 MCG/2 ML VIAL NEB SCH (07:05)
[2022-06-30] MEDS: ALBUT/IPRATROP 3MG/0.5MG NEB 3 ML VIAL NEB SCH ×3 (07:05→15:34)
[2022-06-30] MEDS: VENLAFAXINE HCL XR 75 MG CAPXR PO SCH (10:09)
[2022-06-30] MEDS: ASPIRIN 81 MG ECTAB PO SCH (10:09)
[2022-06-30] MEDS: CLOPIDOGREL BISULFATE 75 MG TAB PO SCH (10:10)
[2022-06-30] MEDS: amLODIPine BESYLATE 5 MG TAB PO SCH (10:10)
[2022-06-30] MEDS: QUEtiapine FUMARATE 25 MG TABLET PO SCH (10:11)
[2022-06-30] MEDS: DONEPEZIL HCL 10 MG TAB PO SCH (10:11)
[2022-06-30] MEDS: lisinopril 10 MG TAB PO SCH (10:11)
[2022-06-30] MEDS: CYANOCOBALAMIN (B-12) 500 MCG TABLET PO SCH (10:11)
--- NOTE | 2022-06-30 15:20 | Discharge Summary ---
Date of Service June 30, 2022 Admission HPI Per Admitting Provider Dillon Noonan is an 86 year old male with COPD who presents to the ER via EMS with decreased oral intake, increased confusion, cough and shortness of breath. Unable to get any history from patient but his daughters are at bedside who provide history. They report 5-6 days of cough and fever and was initially improving on Monday but then started to decline again over the weekend. He fell Fell off the toilet on Monday. Getting increasingly weak with shortness of breath and worsening productive cough since. Eating ok and no choking or coughing after eating (he tends to eat only a few mouth falls at a time. Given ongoing decline mentally with his dementia and COPD his family are wondering about hospice care to get more support at home. He is not on oxygen at baseline. On last admission he became relatively aggressive and his daughters are concerned about systemic steroids causing that again. Principal Diagnosis Human Metapneumovirus, Bacterial pneumonia Hypoxia Discharge Exam Constitutional WD/WN, vitals as above Eyes + anicteric sclerae Respiratory normal respiratory effort; no cough Auscultation: + rhonchi (right lower lung field); no crackles and no wheezes Cardiovascular Rate/Rhythm: regular rate and regular rhythm Heart Sounds: no murmur Extremities: no edema Neurologic + confused; no focal motor deficits Psychiatric Orientation: alert and cooperative Discharge Data Allergies Allergy/AdvReac Type Severity Reaction Status Date / Time morphine AdvReac Agitated Unverified 05/08/22 20:40 Consultations 06/27/22 16:51 ED Decision to Admit Stat 06/27/22 21:04 Consult Palliative Care Routine Ordered Studies 06/27/22 14:32 CT cervical spine wo con Stat CT head/brain wo con Stat Hospital Course (1) Acute respiratory failure with hypoxia: 2/2 bacterial pneumonia and metapneumovirus Mild CO2 retention previously on ABGs. Recommend aiming O2 sats 88-92% Baseline not on oxygen (passed 2 step on discharge in March admission) Weaned down to 3LNC now, improving (2) Bacterial pneumonia: Secondary bacterial infection post viral infection CXR with RLL PNA Ceftriaxone/azithromycin given in the ER Procal down from 21 to 5, no fevers since 06/28, no leukocytosis Received Unasyn and azithromycin given high risk of aspiration pneumonia and possible sinusitis on CT blood cultures drawn but these were taken after antibiotics given-NGTD finish out 4 more days of Augmentin on discharge Going home with hospice (3) Human metapneumovirus (hMPV) pneumonia: Supportive treatment - suspect this predated his bacterial pneumonia as above (4) COPD exacerbation: Family concerned about systemic steroids given increased aggression last time he was on these - of note he was on Solu-medrol 40mg IV q8h last admission therefore suspect he can tolerate 40mg daily ok However no significant wheezing on exam therefore will treat with steroid nebulizers currently Budesonide BID Formoterol BID both given, now stop on discharge (5) Acute metabolic encephalopathy: Suspect due to infection as above Family request palliative care consult given significant decline with repeated episodes of pneumonia and wondering about hospice care at home. Plan is for possible dc to home with hospice (6) Hypokalemia: replaced and resolved (7) Hypertension: BPs controlled continue lisinopril, amlodipine (8) Depression: continue Remeron, Seroquel, Effexor donepezil for dementia (9) CAD (coronary artery disease): h/o CABG continue Plavix,no acute issues trended trop and mildly elevated, trended downward demand ischemia Plan VTE prophylaxis - deferred given family going more hospice care route and SQ injection likely to increase delirium Diet - regular with aspiration precautions Disposition - dc to home with hospice spoke with daughter at bedside Total Time Total Time Spent Total Time Spent (In Minutes): 35 min Discharge Plan Discharge Items Patient Disposition: Hospice - Home Reason For Visit: COPD EXACERBATION, PNA, METAPNEUMOVIRUS Discharge Diagnosis: Human Metapneumovirus, Secondary bacterial pneumonia Acute respiratory failure with hypoxia Condition on Discharge: Fair Activity: As commented below Bathing: No limitations Exercise/Sports: As tolerated Non-emergency contact: Primary Care Provider Call non-emergency contact if: you have any medication questions Follow-up/Referrals: Teodoro Bojorquez [Primary Care Provider] - Diet: Regular Addtl Attending Provider Instructions: You can finish out 4 more days of the antibiotics for your pneumonia. You should remain on oxygen as needed for comfort. You have chosen to go on hospice at home due to your progressive declining health status in the setting of dementia. You do not need to go into see your doctor and can direct all questions and needs to your hospice agency. Pending Studies at Discharge: No Stand-Alone Forms: My [facility] Medications and DC Order Prescriptions: New amoxicillin-pot clavulanate 875-125 mg tablet 1 tab PO BID Qty: 8 0RF Continued cyanocobalamin (vitamin B-12) [Vitamin B-12] 1,000 mcg Tablet 1,000 mcg PO QAM clopidogrel [Plavix] 75 mg Tablet 75 mg PO QAM amlodipine 5 mg Tablet 5 mg PO QAM venlafaxine 75 mg capsule,extended release 24hr 75 mg PO QAM donepezil 10 mg tablet 10 mg PO QAM aspirin 81 mg Tablet,Delayed Release (Dr/Ec) 81 mg PO QAM lisinopril 10 mg tablet 10 mg PO QAM mirtazapine 15 mg tablet 7.5 mg PO HS quetiapine 50 mg tablet 50 mg PO BID ipratropium-albuterol 0.5 mg-3 mg(2.5 mg base)/3 mL Solution For Nebulization 3 ml NEB Q4H PRN (Reason: shortness of breath or wheezing) Qty: 90 0RF Discharge Orders: Discharge Order (Routine); Ordered 06/30/22 Ordered By: Alicia Diaz/Other Patient Handouts: Starting Hospice, For Caregivers: Coping Tips Admission Data Admit Date/Time: 06/27/22 17:58 Attending Provider: Alicia Villanueva Admit Provider: Chris Diego Primary Care Provider: Teodoro Bojorquez Other Providers: Chris Diego ; Charlene Chan Other Interventions: Discharge Summary Assessment (RN) Last Done: 06/30/22 14:54 Coding Level of Care Code 20527 INP/OBS DISCH >30 MIN Diagnoses Acute respiratory failure with hypoxia J96.01 Bacterial pneumonia J15.9 Human metapneumovirus (hMPV) pneumonia J12.3 COPD exacerbation J44.1 Acute metabolic encephalopathy G93.41 Hypokalemia E87.6 Hypertension I10 Depression F32.9 CAD (coronary artery disease) I25.10
== END 2022-06-30 15:53 | disposition hospice, home (50) | DRG 193 ==
LOC: ED 13:38 → 3W 17:58 → SUATTDRO 17:58 → 3W 20:48